=== PATIENT | male | born 1950 ===

== ENCOUNTER 2016-11-17 10:16 | Observation (INO) | payer MEDICARE, OTHER ==
[~2016-11-17] VITALS: Ht 167.6 cm; Wt 59.4 kg
[2016-11-17] VITALS (10 sets, daily range): BP systolic 93–144; BP diastolic 42–74
--- NOTE | 2016-11-17 07:31 | Pre-Procedure Note/Attestation ---
Pre-Procedure Note/Attestation Complete Prior to Procedure Procedure Narrative: implantation of penile prosthesis inflatable Indications for Procedure Pre-Operative Diagnosis: impotence Attestation I attest that I discussed the nature of the procedure; its benefits; risks and complications; and alternatives (and the risks and benefits of such alternatives ), prior to the procedure, with the patient (or the patient's legal utility sales representative). I attest that, if there was a reasonable possibility of needing a blood transfusion, the patient (or the patient's legal utility sales representative) was given the [facility] standardized written summary, pursuant to the Marcial Theodore Blood Safety Act ([place] Health and Safety Code # 1645, as amended). I attest that I re-evaluated the patient just prior to the surgery and that there has been no change in the patient's H&P, except as documented below: Hugo Cisneros MD Nov 17, 2016 07:31
[2016-11-17] MEDS ORDERED: PLAVIX75 MG ORAL (10:55)
[2016-11-17] MEDS ORDERED: ATORVASTATIN CA80 MG ORAL (10:55)
[2016-11-17] MEDS ORDERED: COREG25 MG ORAL (10:55)
[2016-11-17] MEDS ORDERED: TRAMADOL HCL50 MG ORAL (10:55)
[2016-11-17] MEDS ORDERED: CREON DR 24,001 EACH PO (10:55)
[2016-11-17] MEDS ORDERED: ASPIRIN81 MG ORAL (10:55)
[2016-11-17] MEDS ORDERED: AMLODIPINE BESY10 MG ORAL (10:55)
[2016-11-17] MEDS ORDERED: KLONOPIN0.5 MG ORAL (10:55)
[2016-11-17] MEDS ORDERED: Bacitracin Oint 15gm Tube TOPIC ONE (12:30)
[2016-11-17] MEDS ORDERED: Surgicel 4in x 8in TOPIC ONE (12:30)
[2016-11-17] MEDS ORDERED: Bacitracin 50000 Units Vial ONE (12:31)
[2016-11-17] MEDS ORDERED: Albuterol 90mcg Inhaler 8gm INH ONE (13:18)
[2016-11-17] MEDS ORDERED: LR 1000ml ONE (13:30)
[2016-11-17] MEDS ORDERED: fentaNYL 100 mcg/2 mL IV ONE (13:30)
[2016-11-17] MEDS ORDERED: NS Irrig 1000ml ONE (13:30)
[2016-11-17] MEDS ORDERED: Midazolam 2mg/2ml Inj ONE (13:30)
[2016-11-17] MEDS ORDERED: Sterile Water Irrig 1000ml IRRIG ONE (13:30)
[2016-11-17] MEDS ORDERED: Propofol 10mg/ml 20ml IV ONE (13:44)
[2016-11-17] MEDS ORDERED: Vancomycin 1gm inj IVPB ONE (14:17)
--- NOTE | 2016-11-17 15:13 | Anethesia Preoperative Eval ---
Anesthesia Pre-op PMH/ROS General Date of Evaluation: Nov 17, 2016 Time of Evaluation: 13:25 Anesthesiologist: Henri ASA Score: ASA 3 Mallampati Score Class I : Soft palate, uvula, fauces, pillars visible Class II: Soft palate, uvula, fauces visible Class III: Soft palate, base of uvula visible Class IV: Only hard plate visible Mallampati Classification: Class II Surgeon: Amelia Diagnosis: ED Surgical Procedure: Penile prosteses placement Anesthesia History: none Social History: current smoker Family History: no anesthesia problems Allergies: Coded Allergies: PENICILLINS (Verified Allergy, Unknown, 11/16/16) Medications: see eMAR Past Medical History Cardiovascular: Reports: CAD - s/p coronary stentts placement no recent CP, HTN Pulmonary: Reports: COPD - severe Gastrointestinal/Genitourinary: Reports: GERD, Denies: CRI, ESRD, other Neurologic/Psychiatric: Reports: depression/anxiety, Denies: CVA, TIA, dementia, other Endocrine: Reports: DM - on pills, Denies: hypothyroidism, other, steroids HEENT: Reports: cataract (L), cataract (R) - s/p Sx Hematology/Immune: Reports: anemia - mild, Denies: DVT, bleeding disorder, other Musculoskeletal/Integumentary: Reports: DJD, Denies: DDD, OA, RA, edema, other PMH Narrative: as above PSxH Narrative: Bilateral cataracts, Ex lap with hernia repair and partial bowel resection Anesthesia Pre-op Phys. Exam Physician Exam Last Vital Signs Date Time Temp Pulse Resp B/P Pulse Ox O2 Delivery O2 Flow Rate FiO2 11/17/16 10:45 98.9 78 18 131/64 97 Room Air Constitutional: NAD Neurologic: CN 2-12 intact Cardiovascular: RRR Respiratory: other - Diffuse bilateral wheezing , diminished breath sounds Gastrointestinal: S/NT/ND Airway Exam Mallampati Score: Class II MO: full Neck: stiff ROM: limited Teeth: missing Dentures: no lower, no upper Anesthesia Pre-op A/P Labs see chart Studies Pre-op Studies: EKG - NSR Risk Assessment & Plan Assessment: ASA 3 Plan: SAB with MAC Status Change Before Surgery: No Pre-Antibiotics Drug: Ancef 2gr. Given Within 1 Hr of Incision: Yes Time Given: 13:48 MAR BELLE M.D. Nov 17, 2016 15:13
[2016-11-17] MEDS ORDERED: LR 1000ml 1,000 ML IVLG SCH (15:16)
--- NOTE | 2016-11-17 15:16 | Immediate Post-Op Evaluation ---
Immediate Post-Op Evalulation Immediate Post-Op Evalulation Procedure: Penile prostesis placement Date of Evaluation: Nov 17, 2016 Time of Evaluation: 15:15 IV Fluids: 1200 Blood Products: none Estimated Blood Loss: min Urinary Output: 150 Blood Pressure Systolic: 98 Blood Pressure Diastolic: 56 Pulse Rate: 78 Respiratory Rate: 20 O2 Sat by Pulse Oximetry: 98 Temperature (Fahrenheit): 98.4 Pain Score (1-10): 1 Nausea: No Vomiting: No Complications none Patient Status: awake, patent, none Hydration Status: adequate MAR BELLE M.D. Nov 17, 2016 15:16
[2016-11-17] MEDS ORDERED: Midazolam 2mg/2ml Inj IVP PRN (15:30)
[2016-11-17] MEDS ORDERED: Hydromorphone 0.5mg/0.5ml inj IVP PRN (15:30)
[2016-11-17] MEDS ORDERED: DiphenhydrAMINE 50mg/ml Inj IVP PRN (15:30)
[2016-11-17] MEDS: Ketorolac 30mg Inj IV PRN (19:00)
[2016-11-17] MEDS: D5 1/2NS w/KCl 20mEq 1,000 ML IV SCH (20:55)
[2016-11-17] MEDS: Vancomycin 1 GM in D5W 275 ML IVPB SCH (20:57)
[2016-11-18] MEDS: HYDROmorphone 1mg/ml Carpuject SUBQ PRN ×3 (00:23→11:11)
[2016-11-18 04:00] VITALS: BP 145/89
[2016-11-18] MEDS: D5 1/2NS w/KCl 20mEq 1,000 ML IV SCH (05:35)
[2016-11-18] MEDS: Ketorolac 30mg Inj IV PRN (05:36)
[2016-11-18] MEDS: Vancomycin 1 GM in D5W 275 ML IVPB SCH (07:56)
[2016-11-18 08:11] VITALS: BP 166/84
--- NOTE | 2016-11-18 08:11 | 48 Hour Post Anesthesia Eval ---
Post Anesthesia Evaluation Procedure: Penile prostesis placement Date of Evaluation: Nov 18, 2016 Time of Evaluation: 07:05 Blood Pressure Systolic: 145 0: 89 Pulse Rate: 99 Respiratory Rate: 18 Temperature (Fahrenheit): 97.3 O2 Sat by Pulse Oximetry: 92 Airway: patent Nausea: No Vomiting: No Pain Intensity: 1 Hydration Status: adequate Cardiopulmonary Status: at baseline Mental Status/LOC: patient returned to baseline Post-Anesthesia Complications: 0 Follow-up care needed: N/A - further care as per primary team COCO GUZMAN M.D. Nov 18, 2016 08:11
[2016-11-18] MEDS ORDERED: Gentamicin inj 300 MG in NS 110 ML IVPB ONE (09:00)
[2016-11-18] MEDS ORDERED: Vancomycin 1250mg in D5W 275ml IVPB ONE (10:00)
--- NOTE | 2016-11-19 16:08 | Brief Operative Note ---
Immediate Post Operative Note Operative Note Pre-op Diagnosis: impotence Procedure: IPP Post-op Diagnosis: same Post-op Diagnosis: same as pre-op Surgeon: Pro Cisneros Anesthesia: general Specimen: none Complications: none Condition: stable Estimated Blood Loss: minimal Implant(s) used?: Yes Hugo Cisneros MD Nov 19, 2016 16:08
--- NOTE | 2016-11-19 23:58 | Operative Note - Dictated ---
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 OPERATIONS: Implantation of Ambicor penile prosthesis. SURGEON: Hugo Cisneros M.D. ANESTHESIA: General. FINDINGS: Obstructive cord. INDICATIONS FOR SURGERY: The patient had impotence unresponsive to any medical therapy. Treatment options were explained to him in great length including all the potential complications. He signed the consent and brought to the operative room, placed in the supine position. Prepped and draped in a standard fashion. Under general anesthesia, both corpora was mobilized and protected with a Foss catheter. Corpora was opened and dilated to 14-Congolese with Hegar dilators. A 22 cm and 12.5 Ambicor prosthesis with 2.5 cm diopters were placed in the extended position. Corpora was closed. Pump was placed in the subdeltoid fascia and wound was closed in three layers subcuticular closure for the skin. The patient received vancomycin. Preoperatively, dressing was clean and dry. Sponge count and instrument count were correct. Hugo Cisneros M.D. DR: IRMA JOB#: [id number] CC:
== END 2016-11-18 11:45 | disposition home or self-care (01) ==
LOC: SUR 10:16 → 3E 16:15
DX: N52.9 Male erectile dysfunction, unspecified (principal); E11.9 Type 2 diabetes mellitus without complications; I10 Essential (primary) hypertension; I25.10 Atherosclerotic heart disease of native coronary artery without angina pectoris; I50.9 Heart failure, unspecified; E78.5 Hyperlipidemia, unspecified; D64.9 Anemia, unspecified; J44.9 Chronic obstructive pulmonary disease, unspecified; K21.9 Gastro-esophageal reflux disease without esophagitis; F32.9 Major depressive disorder, single episode, unspecified; F41.9 Anxiety disorder, unspecified; M19.90 Unspecified osteoarthritis, unspecified site
CPT/HCPCS: 54405; G0378 ×2; G0379; J0690; J1170; J1580; J1885 ×2; J2250; J2704; J3010; J3370; J7120; 94003; 94150

== ENCOUNTER 2017-01-19 09:16 | Inpatient (IN) | payer MEDICARE, OTHER ==
[2017-01-19] VITALS (17 sets, daily range): BP systolic 147–175; BP diastolic 60–86
[~2017-01-19] VITALS: Ht 167.6 cm; Wt 62.6 kg
[~2017-01-19 09:16] MED LIST: AMLODIPINE BESY10 MG ORAL; ASPIRIN81 MG ORAL; ATORVASTATIN CA80 MG ORAL; COREG25 MG ORAL; CREON DR 24,001 EACH PO; KLONOPIN0.5 MG ORAL; PLAVIX75 MG ORAL; TRAMADOL HCL50 MG ORAL; Vancomycin 1 GM in D5W 275 ML IVPB ONE
--- NOTE | 2017-01-19 09:59 | Pre-Procedure Note/Attestation ---
Pre-Procedure Note/Attestation Complete Prior to Procedure Planned Procedure: not applicable Procedure Narrative: Removal of IPP Indications for Procedure Pre-Operative Diagnosis: ED infected IPP Attestation I attest that I discussed the nature of the procedure; its benefits; risks and complications; and alternatives (and the risks and benefits of such alternatives ), prior to the procedure, with the patient (or the patient's legal sales representatives). I attest that, if there was a reasonable possibility of needing a blood transfusion, the patient (or the patient's legal sales representatives) was given the [facility] standardized written summary, pursuant to the Marcial Theodore Blood Safety Act ([place] Health and Safety Code # 1645, as amended). I attest that I re-evaluated the patient just prior to the surgery and that there has been no change in the patient's H&P, except as documented below: Hugo Cisneros MD Jan 19, 2017 09:59
[2017-01-19] MEDS ORDERED: Vancomycin 1gm inj IVPB ONE ×2 (13:09→13:34)
[2017-01-19] MEDS ORDERED: Propofol 10mg/ml 20ml IV ONE (13:09)
[2017-01-19] MEDS ORDERED: Bacitracin 50000 Units Vial ONE (13:10)
[2017-01-19] MEDS ORDERED: NS Irrig 1000ml ONE (13:30)
[2017-01-19] MEDS ORDERED: Esmolol 100mg/10ml Inj ONE (13:30)
[2017-01-19] MEDS ORDERED: Sterile Water Irrig 1000ml IRRIG ONE (13:30)
[2017-01-19] MEDS ORDERED: LR 1000ml ONE (13:30)
[2017-01-19] MEDS ORDERED: Lidocaine 1% MPF 10mg/ml 5ml ONE (13:30)
[2017-01-19] MEDS ORDERED: fentaNYL 100 mcg/2 mL IV ONE (13:30)
[2017-01-19] MEDS ORDERED: Hydrogen Peroxide 473ml Bottle TOPIC ONE (13:34)
--- NOTE | 2017-01-19 13:53 | Brief Operative Note ---
Immediate Post Operative Note Operative Note Pre-op Diagnosis: ED infected IPP Procedure: Removal of IPP Post-op Diagnosis: same Surgeon: Pro Cisneros Anesthesia: general Specimen: none Complications: none Estimated Blood Loss: none Implant(s) used?: No Hugo Cisneros MD Jan 19, 2017 13:53
[2017-01-19] MEDS ORDERED: Ketorolac 30mg Inj IV PRN ×2 (14:00→22:00)
[2017-01-19] MEDS ORDERED: Betadine 4oz Bottle TOPIC ONE (14:27)
[2017-01-19] MEDS ORDERED: Metoclopramide 10mg/2ml Inj IVP PRN (14:30)
[2017-01-19] MEDS ORDERED: Meperidine 25mg/0.5ml Inj IV PRN (14:30)
[2017-01-19] MEDS ORDERED: Hydromorphone 0.5mg/0.5ml inj IVP PRN (14:30)
--- NOTE | 2017-01-19 15:15 | Immediate Post-Op Evaluation ---
Immediate Post-Op Evalulation Immediate Post-Op Evalulation Procedure: removal of penile prosthesis Date of Evaluation: Jan 19, 2017 Time of Evaluation: 15:15 IV Fluids: 800 Blood Pressure Systolic: 151 Blood Pressure Diastolic: 60 Pulse Rate: 91 Respiratory Rate: 14 O2 Sat by Pulse Oximetry: 100 Temperature (Fahrenheit): 97.7 Nausea: No Vomiting: No Complications none Patient Status: awake, reacts, patent Hydration Status: adequate Drug: gentamicin Given Within 1 Hr of Incision: Yes DONALD ACOSTA CRNA Jan 19, 2017 15:15
--- NOTE | 2017-01-19 15:19 | Anethesia Preoperative Eval ---
Anesthesia Pre-op PMH/ROS General Date of Evaluation: Jan 19, 2017 Time of Evaluation: 14:00 Anesthesiologist: justyna ASA Score: ASA 3 Mallampati Score Class I : Soft palate, uvula, fauces, pillars visible Class II: Soft palate, uvula, fauces visible Class III: Soft palate, base of uvula visible Class IV: Only hard plate visible Mallampati Classification: Class III Surgeon: jonn Diagnosis: abcess protheis Surgical Procedure: removal penile prosthesis Anesthesia History: none Social History: current smoker Family History: no anesthesia problems Allergies: Coded Allergies: No Known Allergies (Unverified , 01/18/17) Medications: see eMAR Past Medical History Cardiovascular: Reports: HTN Pulmonary: Denies: COPD, FRED, asthma, other Gastrointestinal/Genitourinary: Reports: GERD Endocrine: Denies: DM, other, steroids HEENT: Reports: cataract (R) Hematology/Immune: Denies: DVT, anemia, bleeding disorder, other Musculoskeletal/Integumentary: Denies: DDD, DJD, OA, RA, edema, other PSxH Narrative: penile implant 11/08 Anesthesia Pre-op Phys. Exam Physician Exam Last Vital Signs Date Time Temp Pulse Resp B/P Pulse Ox O2 Delivery O2 Flow Rate FiO2 01/19/17 15:15 91 14 100 01/19/17 10:20 98.0 156/85 Room Air Constitutional: NAD Neurologic: CN 2-12 intact Cardiovascular: RRR Respiratory: CTA Gastrointestinal: S/NT/ND Airway Exam Mallampati Classification 3 Mallampati Score: Class III MO: limited ROM: limited Teeth: missing Anesthesia Pre-op A/P Labs wnl Studies Pre-op Studies: EKG - sr Risk Assessment & Plan Plan: general Status Change Before Surgery: No Pre-Antibiotics Drug: gent Given Within 1 Hr of Incision: Yes Time Given: 13:45 DONALD ACOSTA CRNA Jan 19, 2017 15:19
--- NOTE | 2017-01-19 15:21 | 48 Hour Post Anesthesia Eval ---
Post Anesthesia Evaluation Procedure: removal of penile prosthesis Date of Evaluation: Jan 19, 2017 Time of Evaluation: 15:20 Blood Pressure Systolic: 158 0: 70 Pulse Rate: 100 Respiratory Rate: 14 O2 Sat by Pulse Oximetry: 95 Airway: patent Nausea: No Vomiting: No Hydration Status: adequate Cardiopulmonary Status: stable Mental Status/LOC: patient returned to baseline Post-Anesthesia Complications: none Follow-up care needed: N/A DONALD ACOSTA CRNA Jan 19, 2017 15:21
--- NOTE | 2017-01-19 16:26 | History and Physical ---
History of Present Illness General Date patient seen: Jan 19, 2017 Present Illness HPI 66 year old male with hx of ED, HTN, CVA, admitted for removal of infected IPP Allergies: Coded Allergies: No Known Allergies (Unverified , 01/18/17) Medication History Scheduled Amlodipine Besylate* (Amlodipine Besylate*), 10 MG ORAL DAILY, (Reported) Atorvastatin Calcium* (Lipitor*), 80 MG ORAL BEDTIME, (Reported) Carvedilol (Coreg), 25 MG ORAL EVERY 12 HOURS, (Reported) Clonazepam* (Klonopin*), 0.5 MG ORAL PRN, (Reported) Lipase/Protease/Amylase (Creon Dr 24,000 Units Capsule), 1 EACH PO DAILY, ( Reported) Scheduled PRN Tramadol Hcl* (Ultram*), 50 MG ORAL PRN PRN for For Pain, (Reported) Patient History Healthcare decision maker Resuscitation status Advanced Directive on File Past Medical/Surgical History Past Medical/Surgical History: (1) Erectile dysfunction (2) HTN (hypertension) (3) CVA (cerebral vascular accident) Review of Systems All Other Systems: negative except mentioned in HPI Physical Exam General Appearance: WD/WN Lines, tubes and drains: peripheral HEENT: normocephalic, atraumatic Neck: non-tender, normal alignment Respiratory/Chest: chest wall non-tender, lungs clear Cardiovascular/Chest: normal peripheral pulses, normal rate Abdomen: non tender Last 24 Hour Vital Signs Date Time Temp Pulse Resp B/P Pulse Ox O2 Delivery O2 Flow Rate FiO2 01/19/17 15:45 75 15 153/78 96 Simple Mask 6.0 01/19/17 15:30 81 18 170/86 97 Simple Mask 6.0 01/19/17 15:21 100 14 95 01/19/17 15:15 72 15 175/79 99 Simple Mask 6.0 01/19/17 15:15 91 14 100 01/19/17 15:00 81 17 151/60 96 Simple Mask 6.0 01/19/17 14:50 97.7 94 14 159/86 98 Simple Mask 6.0 01/19/17 10:20 98.0 100 18 156/85 98 Room Air Height (Feet): 5 Height (Inches): 6.00 Weight (Pounds): 138 Medications Current Medications Medications (Trade) Dose Ordered Sig/Twin Route PRN Reason Start Time Stop Time Status Last Admin Dose Admin Acetaminophen (Tylenol) 650 mg Q4H PRN ORAL FEVER 01/19/17 14:00 02/18/17 13:59 UNV Acetaminophen (Tylenol) 650 mg Q6H PRN ORAL Mild Pain (Pain Scale 1-3) 01/19/17 14:00 02/18/17 13:59 UNV Acetaminophen/ Hydrocodone Bitart ([place] 5/325) 1 tab Q4H PRN ORAL Moderate Pain (Pain Scale 4-6) 01/19/17 14:00 01/26/17 13:59 UNV Amlodipine Besylate (Norvasc) 10 mg DAILY ORAL 01/20/17 09:00 02/19/17 08:59 UNV Atorvastatin Calcium (Lipitor) 80 mg BEDTIME ORAL 01/19/17 21:00 02/18/17 20:59 UNV Carvedilol (Coreg) 25 mg EVERY 12 HOURS ORAL 01/19/17 21:00 02/18/17 20:59 UNV Clonazepam (KlonoPIN) 0.5 mg PRN ORAL 01/19/17 16:30 01/26/17 16:29 UNV Dextrose/ Electrolytes (D5 0.45%NS W/ KCl 20mEq) 1,000 ml @ 100 mls/hr Q10H IV 01/19/17 13:53 02/18/17 13:52 UNV Docusate Sodium (Colace) 100 mg TWICE A DAY ORAL 01/19/17 18:00 02/18/17 17:59 UNV Hydromorphone HCl (Dilaudid) 0.5 mg Q15M PRN IVP Severe Pain (Pain Scale 7-10) 01/19/17 14:30 UNV Hydromorphone HCl (Dilaudid) 1 mg Q3H PRN IVP pain score 4-6 01/19/17 14:00 01/26/17 13:59 UNV Ketorolac Tromethamine (Toradol 30mg) 15 mg Q6H PRN IV For Pain 01/19/17 14:00 01/24/17 13:59 UNV Meperidine HCl (Demerol) 25 mg Q15M PRN IV Shivering 01/19/17 14:30 UNV Metoclopramide HCl (Reglan) 10 mg Q1H PRN IVP Nausea & Vomiting 01/19/17 14:30 UNV Ondansetron HCl (Zofran) 4 mg Q1H PRN IVP Nausea & Vomiting 01/19/17 14:30 UNV Ondansetron HCl (Zofran) 4 mg Q6H PRN IVP Nausea & Vomiting 01/19/17 14:00 02/18/17 13:59 UNV Temazepam (Restoril) 7.5 mg DAILYPRN PRN ORAL Insomnia 01/19/17 14:00 01/26/17 13:59 UNV Assessment/Plan Problem List: (1) Implanon removal ICD Codes: Z30.46 - Encounter for surveillance of implantable subdermal contraceptive SNOMED: 795596149, 914127007 (2) HTN (hypertension) ICD Codes: I10 - Essential (primary) hypertension SNOMED: 99792963 (3) Erectile dysfunction ICD Codes: N52.9 - Male erectile dysfunction, unspecified SNOMED: 486824091 (4) CVA (cerebral vascular accident) ICD Codes: I63.9 - Cerebral infarction, unspecified SNOMED: 837709361 JASPREET LEPE Jan 19, 2017 16:26
[2017-01-19] MEDS ORDERED: clonazePAM 0.5mg tab ORAL SCH (16:30)
[2017-01-19] MEDS ORDERED: Norco 5mg/325mg tab ORAL PRN ×2 (20:12→20:33)
[2017-01-19] MEDS ORDERED: HYDROmorphone 1mg/ml Carpuject IVP PRN ×2 (20:13→20:33)
[2017-01-19 20:33] LABS: BASOPHILS % (AUTO) 0.6 % (0.0-2.0); EOSINOPHILS % (AUTO) 1.9 % (0.0-3.0); LYMPHOCYTES % (AUTO) 15.4 % (20.0-45.0); MEAN CORPUSCULAR HGB CONC 32.9 G/DL (32.0-36.0); MEAN CORPUSCULAR VOLUME 94 FL (80-99); MEAN PLATELET VOLUME 6.9 FL (6.5-10.1); MONOCYTES % (AUTO) 6.4 % (1.0-10.0); NEUTROPHILS % (AUTO) 75.7 % (45.0-75.0); PLATELET COUNT 249 K/UL (150-450); RED BLOOD COUNT 4.17 M/UL (4.70-6.10); RED CELL DISTRIBUTION WIDTH 12.1 % (11.6-14.8); WHITE BLOOD COUNT 11.9 K/UL (4.8-10.8)
[2017-01-19] MEDS: D5 1/2NS w/KCl 20mEq 1,000 ML IV SCH (20:43)
[2017-01-19] MEDS: Carvedilol 25mg Tab ORAL SCH (20:44)
[2017-01-19] MEDS: Docusate 100mg cap ORAL SCH (20:44)
[2017-01-19 20:49] LABS: ANION GAP 13 (5-15); CALCIUM 9.2 mg/dL (8.6-10.2); CARBON DIOXIDE 28 mEQ/L (20-30); CHLORIDE 98 mEQ/L (98-107); CREATININE 0.8 mg/dL (0.7-1.2); GLOMERULAR FILTRATION RATE > 60 mL/min (>60); HEMOLYSIS 1; POTASSIUM 4.6 mEQ/L (3.4-4.9); SODIUM 139 mEQ/L (135-145)
[2017-01-19] MEDS ORDERED: Atorvastatin 80mg tab ORAL SCH (21:00)
[2017-01-19] MEDS ORDERED: Vancomycin 1gm in D5W 275ml IVPB ONE (21:00)
[2017-01-19] MEDS: Piperacillin/Tazobactam 3.375 GM in NS 110 ML IVPB SCH (22:43)
[2017-01-19] MEDS ORDERED: Gentamicin inj 300 MG in NS 110 ML IVPB SCH (23:00)
[2017-01-20] VITALS (11 sets, daily range): BP systolic 162–206; BP diastolic 77–115
[2017-01-20] MEDS: D5 1/2NS w/KCl 20mEq 1,000 ML IV SCH ×3 (05:22→21:22)
[2017-01-20] MEDS: Piperacillin/Tazobactam 3.375 GM in NS 110 ML IVPB SCH ×2 (05:33→17:30)
[2017-01-20] MEDS ORDERED: HydrALAZINE 10mg Tab ORAL PRN ×2 (08:00→13:00)
[2017-01-20] MEDS: Docusate 100mg cap ORAL SCH ×2 (08:22→18:27)
[2017-01-20] MEDS: Carvedilol 25mg Tab ORAL SCH ×2 (08:23→21:21)
[2017-01-20 08:33] LABS: MEAN CORPUSCULAR HEMOGLOBIN 31.2 PG (27.0-31.0); MEAN CORPUSCULAR HGB CONC 33.1 G/DL (32.0-36.0); MEAN CORPUSCULAR VOLUME 94 FL (80-99); MEAN PLATELET VOLUME 6.6 FL (6.5-10.1); PLATELET COUNT 302 K/UL (150-450); RED BLOOD COUNT 4.83 M/UL (4.70-6.10); RED CELL DISTRIBUTION WIDTH 12.2 % (11.6-14.8)
[2017-01-20 08:44] LABS: INR 1.1 (0.9-1.1); PROTHROMBIN TIME 11.9 SEC (9.30-11.50)
[2017-01-20 08:54] LABS: BAND NEUTROPHILS % (MANUAL) 0 % (0-8); BASOPHILS % (MANUAL) 0 % (0-2); EOSINOPHILS % (MANUAL) 0 % (0-3); LYMPHOCYTES % (MANUAL) 7 % (20-45); NEUTROPHILS % (MANUAL) 89 % (45-75); PLATELET ESTIMATE ADEQUATE; PLATELET MORPHOLOGY NORMAL; TOTAL CELLS COUNTED 100
[2017-01-20 09:15] LABS: MAGNESIUM 1.6 mg/dL (1.7-2.5); PHOSPHORUS 2.3 mg/dL (2.5-4.8)
[2017-01-20 09:20] LABS: ALANINE AMINOTRANSFERASE 23 U/L (3-41); ANION GAP 20 (5-15); ASPARTATE AMINO TRANSFERASE 32 U/L (5-40); CALCIUM 8.9 mg/dL (8.6-10.2); CARBON DIOXIDE 23 mEQ/L (20-30); CHLORIDE 96 mEQ/L (98-107); CREATININE 0.7 mg/dL (0.7-1.2); GLOMERULAR FILTRATION RATE > 60 mL/min (>60); HEMOLYSIS 2; POTASSIUM 3.9 mEQ/L (3.4-4.9); SODIUM 139 mEQ/L (135-145); TOTAL PROTEIN 6.7 g/dL (6.6-8.7)
[2017-01-20] MEDS ORDERED: Norco 5mg/325mg tab ORAL PRN (11:30)
[2017-01-20] MEDS ORDERED: Ketorolac 30mg Inj IV PRN (11:30)
--- NOTE | 2017-01-20 14:56 | Pulmonology Progress Note ---
Assessment/Plan Problems: (1) Implanon removal (2) HTN (hypertension) (3) Erectile dysfunction (4) CVA (cerebral vascular accident) Assessment/Plan bp control IV antibiotics check wbc Mg, Sulfa supplement. Subjective ROS Limited/Unobtainable: No Interval Events: transferred to [facility] b/o bp of 206/100 Respiratory: Reports: no symptoms Cardiovascular: Reports: no symptoms Allergies: Coded Allergies: No Known Allergies (Unverified , 01/18/17) Objective Last 24 Hour Vital Signs Date Time Temp Pulse Resp B/P Pulse Ox O2 Delivery O2 Flow Rate FiO2 01/20/17 13:07 81 162/96 01/20/17 11:46 190/80 01/20/17 11:30 96.7 83 20 190/80 98 Nasal Cannula 1.0 01/20/17 09:55 97.0 77 20 178/86 97 Nasal Cannula 2.0 01/20/17 09:27 77 190/77 01/20/17 08:26 206/115 01/20/17 08:23 98 206/115 01/20/17 08:23 98 206/115 01/20/17 08:15 97.2 74 20 206/93 96 Nasal Cannula 2.0 01/20/17 08:00 97.0 95 20 206/115 97 Nasal Cannula 2.0 01/20/17 05:30 80 167/94 01/20/17 04:42 175/79 01/20/17 04:00 98.1 80 16 175/79 97 Nasal Cannula 2.0 01/20/17 00:39 185/93 01/20/17 00:30 97.3 93 16 185/93 97 Nasal Cannula 2.0 01/19/17 21:00 97 Nasal Cannula 2.0 28 01/19/17 21:00 Nasal Cannula 2.0 28 01/19/17 20:44 125 175/85 01/19/17 20:00 98.6 125 16 175/85 99 Nasal Cannula 2.0 01/19/17 18:30 80 18 164/79 98 Nasal Cannula 01/19/17 18:00 79 18 164/71 99 Nasal Cannula 3.0 01/19/17 17:45 81 18 160/74 97 Nasal Cannula 3.0 01/19/17 17:30 98.3 79 16 159/83 96 Nasal Cannula 3.0 01/19/17 17:15 75 15 147/76 97 Nasal Cannula 3.0 01/19/17 17:00 72 19 157/83 93 Nasal Cannula 3.0 01/19/17 16:45 87 18 153/78 97 Nasal Cannula 3.0 01/19/17 16:30 83 16 163/74 95 Nasal Cannula 3.0 01/19/17 16:15 71 17 149/81 96 Nasal Cannula 3.0 01/19/17 16:00 77 14 155/75 98 Nasal Cannula 3.0 01/19/17 15:45 75 15 153/78 96 Simple Mask 6.0 01/19/17 15:30 81 18 170/86 97 Simple Mask 6.0 01/19/17 15:21 100 14 95 01/19/17 15:15 72 15 175/79 99 Simple Mask 6.0 01/19/17 15:15 91 14 100 01/19/17 15:00 81 17 151/60 96 Simple Mask 6.0 Intake and Output 01/19/17 01/20/17 19:00 07:00 Intake Total 250 ml 100 ml Output Total 640 ml 1600 ml Balance -390 ml -1500 ml Intake Oral 0 ml 0 ml IV Total 250 ml 100 ml Output Urine Total 630 ml 1600 ml Estimated Blood Loss 10 ml # Voids 2 General Appearance: WD/WN HEENT: normocephalic, atraumatic, anicteric Respiratory/Chest: chest wall non-tender, lungs clear Cardiovascular: normal peripheral pulses, normal rate Abdomen: normal bowel sounds, soft, non tender Genitourinary: normal external genitalia Extremities: no cyanosis Skin: no lesions, no ulcers 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 Laboratory Tests 01/19/17 18:00: White Blood Count 11.9H, Red Blood Count 4.17L, Hemoglobin 12.9L, Hematocrit 39.3L, Mean Corpuscular Volume 94, Mean Corpuscular Hemoglobin 31.0, Mean Corpuscular Hemoglobin Concent 32.9, Red Cell Distribution Width 12.1, Platelet Count 249, Mean Platelet Volume 6.9, Neutrophils (%) (Auto) 75.7H, Lymphocytes ( %) (Auto) 15.4L, Monocytes (%) (Auto) 6.4, Eosinophils (%) (Auto) 1.9, Basophils (%) (Auto) 0.6, Sodium Level 139, Potassium Level 4.6, Chloride Level 98, Carbon Dioxide Level 28, Anion Gap 13, Blood Urea Nitrogen 17, Creatinine 0.8, Estimat Glomerular Filtration Rate > 60, Glucose Level 80, Calcium Level 9.2 01/20/17 08:10: White Blood Count 16.0H, Red Blood Count 4.83, Hemoglobin 15.1, Hematocrit 45.5 , Mean Corpuscular Volume 94, Mean Corpuscular Hemoglobin 31.2H, Mean Corpuscular Hemoglobin Concent 33.1, Red Cell Distribution Width 12.2, Platelet Count 302, Mean Platelet Volume 6.6, Neutrophils (%) (Auto) , Lymphocytes (%) ( Auto) , Monocytes (%) (Auto) , Eosinophils (%) (Auto) , Basophils (%) (Auto) , Sodium Level 139, Potassium Level 3.9, Chloride Level 96L, Carbon Dioxide Level 23, Anion Gap 20H, Blood Urea Nitrogen 13, Creatinine 0.7, Estimat Glomerular Filtration Rate > 60, Glucose Level 125H, Calcium Level 8.9, Differential Total Cells Counted 100, Neutrophils % (Manual) 89H, Lymphocytes % (Manual) 7L, Monocytes % (Manual) 4, Eosinophils % (Manual) 0, Basophils % (Manual) 0, Band Neutrophils 0, Platelet Estimate Adequate, Platelet Morphology Normal, Red Blood Cell Morphology Normal, Prothrombin Time 11.9H, Prothromb Time International Ratio 1.1, Activated Partial Thromboplast Time 29, Phosphorus Level 2.3L, Magnesium Level 1.6L, Total Bilirubin 0.3, Aspartate Amino Transf ( AST/SGOT) 32, Alanine Aminotransferase (ALT/SGPT) 23, Alkaline Phosphatase 77, Total Protein 6.7, Albumin 3.5, Globulin 3.2, Albumin/Globulin Ratio 1.0 Current Medications Medications (Trade) Dose Ordered Sig/Twin Route PRN Reason Start Time Stop Time Status Last Admin Dose Admin Acetaminophen (Tylenol) 650 mg Q4H PRN ORAL FEVER>100.6 01/20/17 11:00 02/19/17 10:59 Acetaminophen (Tylenol) 650 mg Q6H PRN ORAL Mild Pain (Pain Scale 1-3) 01/20/17 11:00 02/19/17 10:59 Acetaminophen/ Hydrocodone Bitart ([place] 5/325) 1 tab Q4H PRN ORAL Mild Pain (Pain Scale 1-3) 01/20/17 11:30 01/27/17 11:29 Amlodipine Besylate (Norvasc) 10 mg DAILY ORAL 01/21/17 09:00 02/20/17 08:59 Atorvastatin Calcium (Lipitor) 80 mg BEDTIME ORAL 01/20/17 21:00 02/19/17 20:59 Carvedilol (Coreg) 25 mg EVERY 12 HOURS ORAL 01/20/17 21:00 02/19/17 20:59 Clonazepam (KlonoPIN) 0.5 mg PRN ORAL 01/20/17 16:30 01/27/17 16:29 UNV Clonidine HCl (Catapres) 0.1 mg Q4H PRN ORAL SBP >160 mm Hg 01/20/17 12:26 02/19/17 12:25 Dextrose/ Electrolytes 1,000 ml @ 100 mls/hr Q10H IV 01/20/17 11:00 02/19/17 10:59 01/20/17 10:49 Docusate Sodium (Colace) 100 mg TWICE A DAY ORAL 01/20/17 18:00 02/19/17 17:59 Gentamicin Sulfate (Gentamicin inj) 100 mg EVERY 8 HOURS IV 01/20/17 14:00 01/27/17 13:59 UNV Hydralazine HCl (Apresoline) 10 mg Q4H PRN IV For SBP >160 01/20/17 11:30 02/19/17 11:29 01/20/17 11:46 Hydromorphone HCl (Dilaudid) 1 mg Q3H PRN IVP Breakthrough Pain 01/20/17 11:30 01/27/17 11:29 Ketorolac Tromethamine (Toradol 30mg) 15 mg Q6H PRN IV Moderate Pain (Pain Scale 4-6) 01/20/17 11:30 01/25/17 11:29 01/20/17 12:59 Ondansetron HCl (Zofran) 4 mg Q6H PRN IVP Nausea & Vomiting 01/20/17 11:30 02/19/17 11:29 01/20/17 12:42 Piperacillin Sod/ Tazobactam Sod/ Sodium Chloride (Zosyn/Sodium Chloride) 110 ml @ 27.5 mls/hr Q8H IVPB 01/20/17 14:00 01/27/17 13:59 UNV Temazepam (Restoril) 7.5 mg QHS PRN ORAL Insomnia 01/20/17 21:00 01/27/17 20:59 Vancomycin HCl (Vanco rx to dose) 1 ea DAILY PRN MISC Per rx protocol 01/21/17 09:00 02/20/17 08:59 UNV JASPREET LEPE Jan 20, 2017 14:56
[2017-01-20] MEDS ORDERED: clonazePAM 0.5mg tab ORAL PRN (16:30)
[2017-01-20] MEDS ORDERED: Sodium Phosphate 30 MM in NS 275 ML IV ONE (18:00)
[2017-01-20] MEDS: HYDROmorphone 1mg/ml Carpuject IVP PRN (18:55)
--- NOTE | 2017-01-20 19:24 | Cardiology Progress Note ---
Assessment/Plan Assessment/Plan The patient is seen and examined, full consult will be dictated. Objective Last 24 Hour Vital Signs Date Time Temp Pulse Resp B/P Pulse Ox O2 Delivery O2 Flow Rate FiO2 01/20/17 16:41 97 Nasal Cannula 2.0 01/20/17 16:41 Nasal Cannula 2.0 01/20/17 15:19 96.5 87 20 195/98 100 Nasal Cannula 2.0 01/20/17 15:13 195/98 01/20/17 13:07 81 162/96 01/20/17 12:00 77 01/20/17 11:46 190/80 01/20/17 11:30 96.7 83 20 190/80 98 Nasal Cannula 1.0 01/20/17 09:55 97.0 77 20 178/86 97 Nasal Cannula 2.0 01/20/17 09:43 74 01/20/17 09:27 77 190/77 01/20/17 08:26 206/115 01/20/17 08:23 98 206/115 01/20/17 08:23 98 206/115 01/20/17 08:15 97.2 74 20 206/93 96 Nasal Cannula 2.0 01/20/17 08:00 97.0 95 20 206/115 97 Nasal Cannula 2.0 01/20/17 05:30 80 167/94 01/20/17 04:42 175/79 01/20/17 04:00 98.1 80 16 175/79 97 Nasal Cannula 2.0 01/20/17 00:39 185/93 01/20/17 00:30 97.3 93 16 185/93 97 Nasal Cannula 2.0 01/19/17 21:00 97 Nasal Cannula 2.0 01/19/17 21:00 Nasal Cannula 2.0 01/19/17 20:44 125 175/85 01/19/17 20:00 98.6 125 16 175/85 99 Nasal Cannula 2.0 Intake and Output 01/19/17 01/20/17 19:00 07:00 Intake Total 250 ml 100 ml Output Total 640 ml 1600 ml Balance -390 ml -1500 ml Intake Oral 0 ml 0 ml IV Total 250 ml 100 ml Output Urine Total 630 ml 1600 ml Estimated Blood Loss 10 ml # Voids 2 Laboratory Tests Test 01/20/17 08:10 White Blood Count 16.0 K/UL (4.8-10.8) H Red Blood Count 4.83 M/UL (4.70-6.10) Hemoglobin 15.1 G/DL (14.2-18.0) Hematocrit 45.5 % (42.0-52.0) Mean Corpuscular Volume 94 FL (80-99) Mean Corpuscular Hemoglobin 31.2 PG (27.0-31.0) H Mean Corpuscular Hemoglobin Concent 33.1 G/DL (32.0-36.0) Red Cell Distribution Width 12.2 % (11.6-14.8) Platelet Count 302 K/UL (150-450) Mean Platelet Volume 6.6 FL (6.5-10.1) Neutrophils (%) (Auto) % (45.0-75.0) Lymphocytes (%) (Auto) % (20.0-45.0) Monocytes (%) (Auto) % (1.0-10.0) Eosinophils (%) (Auto) % (0.0-3.0) Basophils (%) (Auto) % (0.0-2.0) Differential Total Cells Counted 100 Neutrophils % (Manual) 89 % (45-75) H Lymphocytes % (Manual) 7 % (20-45) L Monocytes % (Manual) 4 % (1-10) Eosinophils % (Manual) 0 % (0-3) Basophils % (Manual) 0 % (0-2) Band Neutrophils 0 % (0-8) Platelet Estimate Adequate Platelet Morphology Normal Red Blood Cell Morphology Normal Prothrombin Time 11.9 SEC (9.30-11.50) H Prothromb Time International Ratio 1.1 (0.9-1.1) Activated Partial Thromboplast Time 29 SEC (23-33) Sodium Level 139 mEQ/L (135-145) Potassium Level 3.9 mEQ/L (3.4-4.9) Chloride Level 96 mEQ/L (98-107) L Carbon Dioxide Level 23 mEQ/L (20-30) Anion Gap 20 (5-15) H Blood Urea Nitrogen 13 mg/dL (7-23) Creatinine 0.7 mg/dL (0.7-1.2) Estimat Glomerular Filtration Rate > 60 mL/min (>60) Glucose Level 125 mg/dL (74-106) H Calcium Level 8.9 mg/dL (8.6-10.2) Phosphorus Level 2.3 mg/dL (2.5-4.8) L Magnesium Level 1.6 mg/dL (1.7-2.5) L Total Bilirubin 0.3 mg/dL (0.0-1.2) Aspartate Amino Transf (AST/SGOT) 32 U/L (5-40) Alanine Aminotransferase (ALT/SGPT) 23 U/L (3-41) Alkaline Phosphatase 77 U/L (40-129) Total Protein 6.7 g/dL (6.6-8.7) Albumin 3.5 g/dL (3.5-5.2) Globulin 3.2 g/dL Albumin/Globulin Ratio 1.0 (1.0-2.7) JORGE TAYLOR Jan 20, 2017 19:23
[2017-01-20] MEDS: Atorvastatin 80mg tab ORAL SCH (21:22)
--- NOTE | 2017-01-20 21:32 | Consultation ---
Consult Note Assessment/Plan [id number] DMITRIY NOBLE M.D. Jan 20, 2017 21:31
--- NOTE | 2017-01-20 22:31 | Consultation ---
DATE OF CONSULTATION: 01/20/2017 CARDIOLOGY CONSULTATION: CONSULTING PHYSICIAN: Danie Adorno M.D. ATTENDING PHYSICIAN: Hugo Cisneros M.D. REQUESTING PHYSICIAN: Sania Valles M.D. REASON FOR CONSULTATION: Management of tachycardia. HISTORY OF PRESENT ILLNESS: The patient is a very unfortunate 66-year-old gentleman, who is directly admitted to this facility for removal of the infected penile prosthesis. The patient is suffering from cerebrovascular accident and is not capable of verbalizing due to expressive aphasia. The patient underwent removal of the infected penile prosthesis by Dr. Cisneros, who has been admitted postoperatively to telemetry for further evaluation and management. Cardiology consultation was made at the request of Dr. Valles for management of tachycardia. PAST MEDICAL HISTORY: Significant for: 1. History of hypertension. 2. History of cerebrovascular accident. 3. History of erectile dysfunction. 4. History of gastroesophageal reflux disease. ALLERGIES: No known drug allergies. MEDICATIONS: 1. Amlodipine 10 mg p.o. daily. 2. Atorvastatin 80 mg p.o. at bedtime. 3. Carvedilol 25 mg p.o. twice daily. 4. Klonopin 0.5 mg p.o. daily at bedtime p.r.n. insomnia. 5. Creon 24,000, one tablet p.o. daily. HABITS: There is no current history of tobacco, alcohol, or illicit drug use. REVIEW OF SYSTEMS: A 12-system review cannot be done as the patient is aphasic and not providing any history. PHYSICAL EXAMINATION: VITAL SIGNS: Currently blood pressure is 195/98, heart rate 105, respiration 20, and O2 saturation 100% on room air. GENERAL: The patient is a very unfortunate 66-year-old gentleman, who is in no apparent respiratory distress and not capable of expressing himself. HEENT: Atraumatic and normocephalic. Anicteric. Pupils are equal, round, and reactive to light and accommodation. There is facial plethora. Dry mucosal membranes. NECK: JVP is less than 5 cm. No carotid bruits. Carotid upstrokes are 2+ bilaterally. CVS: Normal S1 and S2. Regular rate and rhythm. No murmurs, gallops, or rubs. Tachycardic. LUNGS: Clear to auscultation bilaterally. ABDOMEN: Soft, nontender, and nondistended. No hepatosplenomegaly. Positive bowel sounds. EXTREMITIES: No evidence of edema, clubbing, or cyanosis. LABORATORY FINDINGS: INR is 1.1. Sodium is 139, potassium 4.6, chloride 98, bicarbonate 28, BUN 17, creatinine 0.8, glucose 80, calcium 9.2, and magnesium 1.6. Hematology showed WBC 11.9, hemoglobin 12.9, hematocrit 39.3, and platelet count 249,000. ASSESSMENT AND PLAN: 1. Sinus tachycardia. This could be due to hypovolemia. I will like to hydrated the patient and also pain management as the patient is in postoperative. In view of accelerated hypertension, I would like to use metoprolol. 2. Accelerated hypertension. I will like to obtain the blood pressure to a level of 130 to 150 mmHg. The patient is currently on combination of amlodipine and carvedilol. Continue hydration on this patient. The patient is currently on carvedilol 25 mg, may have to add calcium- channel blockers, if the heart rate remains to be elevated. A 12-lead electrocardiogram will be done. Currently on amlodipine and carvedilol. The patient is on clonidine for breakthrough hypertension. I would like to consider valsartan. I would like to thank, Dr. Cisneros and Dr. Valles for allowing me to participate in the care of this patient. Danie Adorno M.D. DR: Michael JOB#: [id number] CC:
--- NOTE | 2017-01-20 23:01 | Consultation ---
DATE OF CONSULTATION: 01/20/2017 CARDIOLOGY CONSULTATION REFERRING PHYSICIAN: Sania Valles M.D. REASON FOR CONSULTATION: Management of tachycardia. HISTORY OF PRESENT ILLNESS: The patient is a very unfortunate gentleman with a prior history of hypertension, cerebrovascular accident, and erectile dysfunction. DICTATION ABRUPTLY ENDED Danie Adorno M.D. DR: [place] JOB#: [id number] CC:
[2017-01-21] VITALS: BP 171/100
--- NOTE | 2017-01-21 00:31 | Consultation ---
DATE OF CONSULTATION: INFECTIOUS DISEASES CONSULTATION CONSULTING PHYSICIAN: Sascha Tabor M.D. REQUESTING PHYSICIAN: Sania Valles M.D. REASON FOR CONSULTATION: Evaluation of the patient for penile prosthesis infection, antibiotic management. HISTORY OF PRESENT ILLNESS: The patient is a 66-year-old male with multiple medical problem as listed below, was admitted to this medical center for removal of infected penile prosthesis. The patient underwent surgery. The patient at this time is on IV antibiotics. Infectious Disease consultation has been requested for further evaluation of the patient and antibiotic management. The patient is not able to provide detailed information. Information is gathered through the chart and speaking to the staff. PAST MEDICAL HISTORY: 1. Hypertension. 2. CVA. 3. History of erectile dysfunction. 4. History of GERD. MEDICATIONS: IV Zosyn and vancomycin. ALLERGIES: No known drug allergies. SOCIAL HISTORY: Unknown. FAMILY HISTORY: Unavailable. REVIEW OF SYSTEMS: Limited. Much of the information I was able to gather is as mentioned above. PHYSICAL EXAMINATION: VITAL SIGNS: Pulse is 86, respiratory rate 18, and blood pressure 185/86. HEENT: Mild pale conjunctiva. No icterus. NECK: No lymphadenopathy. CHEST: Clear. HEART: S1 and S2. ABDOMEN: Soft. Nontender. EXTREMITIES: No cyanosis. : The patient has dressing in the surgical area. NEUROLOGIC: Awake. LABORATORY AND DIAGNOSTIC DATA: White blood cell 16, hemoglobin 15, and platelets 302,000. BUN 13 and creatinine 0.7. Liver function tests unremarkable. ASSESSMENT: The patient is a 66-year-old male with multiple medical problems as listed above, who has: 1. Infected penile prosthesis, status post removal. 2. . PLAN: 1. We will continue the patient on vancomycin and Zosyn. 2. Monitor CBC. 3. Monitor BNP. 4. Monitor cultures. 5. Based on the patient's clinical course and labs, we will do further recommendations. Thank you, Dr. Valles, for allowing me to participate in the care of this patient. I will follow the patient with you during this hospitalization. Sascha Tabor M.D. DR: TAMMIE JOB#: [id number] CC:
[2017-01-21] MEDS ORDERED: Vancomycin 1250mg/D5W 275ml IVPB ONE ×2 (01:00)
[2017-01-21 04:00] VITALS: BP 125/79
[2017-01-21] MEDS: Piperacillin/Tazobactam 3.375 GM in NS 110 ML IVPB SCH ×3 (04:24→16:14)
[2017-01-21] MEDS ORDERED: Vancomycin 1gm inj IVPB ONE (04:57)
[2017-01-21] MEDS: D5 1/2NS w/KCl 20mEq 1,000 ML IV SCH ×2 (07:21→16:15)
[2017-01-21 08:00] VITALS: BP 138/67
[2017-01-21 08:34] LABS: MEAN CORPUSCULAR HEMOGLOBIN 30.8 PG (27.0-31.0); MEAN CORPUSCULAR HGB CONC 33.5 G/DL (32.0-36.0); MEAN CORPUSCULAR VOLUME 92 FL (80-99); PLATELET COUNT 304 K/UL (150-450); RED CELL DISTRIBUTION WIDTH 11.9 % (11.6-14.8); WHITE BLOOD COUNT 18.1 K/UL (4.8-10.8)
[2017-01-21 08:52] LABS: ALANINE AMINOTRANSFERASE 21 U/L (3-41); ASPARTATE AMINO TRANSFERASE 27 U/L (5-40); CALCIUM 8.1 mg/dL (8.6-10.2); CARBON DIOXIDE 24 mEQ/L (20-30); CHLORIDE 93 mEQ/L (98-107); CREATININE 0.7 mg/dL (0.7-1.2); GLOMERULAR FILTRATION RATE > 60 mL/min (>60); HEMOLYSIS 5; MAGNESIUM 1.9 mg/dL (1.7-2.5); PHOSPHORUS 1.5 mg/dL (2.5-4.8); SODIUM 134 mEQ/L (135-145); TOTAL PROTEIN 6.2 g/dL (6.6-8.7)
[2017-01-21 08:59] LABS: ANION GAP 17 (5-15)
[2017-01-21] MEDS: Carvedilol 25mg Tab ORAL SCH ×2 (09:15→20:02)
[2017-01-21] MEDS: Docusate 100mg cap ORAL SCH ×2 (09:15→18:18)
[2017-01-21 09:27] LABS: POTASSIUM 2.6 mEQ/L (3.4-4.9)
[2017-01-21] MEDS: HYDROmorphone 1mg/ml Carpuject IVP PRN ×6 (09:42→22:18)
--- NOTE | 2017-01-21 10:17 | Pulmonology Progress Note ---
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 - Removal of penile prosthesis, urethral reconstruction , closure of the urethral perforation and erosion and Foss catheter placement ST HTN urgency erectile dysfunction Hx of CVA PLAN OF CARE tele O2 HHN prn abx ID follows leukocytosis with trend up today ST resolved, likely due to hypovolemia BP management with multiple regimen of anti HTN - BB, ARB and CCB cardio follows continue statin K replaced bowel regimen pain management, increase dose of Dilaudid case discussed and evaluated by supervising physician Subjective Allergies: Coded Allergies: No Known Allergies (Unverified , 01/18/17) All Systems: reviewed and negative except above - leukocytosis today Subjective leukocytosis with trend up today -18 c/o pain, not feeling well K- low Objective Last 24 Hour Vital Signs Date Time Temp Pulse Resp B/P Pulse Ox O2 Delivery O2 Flow Rate FiO2 01/21/17 09:16 95 138/67 01/21/17 09:15 95 138/67 01/21/17 08:00 96.9 100 17 138/67 98 Room Air 01/21/17 04:00 98.0 124 20 125/79 Room Air 01/21/17 04:00 96 01/21/17 00:16 171/100 01/21/17 00:00 91 01/21/17 00:00 97.9 82 20 171/100 Room Air 01/20/17 23:31 185/86 01/20/17 21:21 104 185/86 01/20/17 20:00 87 01/20/17 20:00 98.2 104 24 185/86 96 Room Air 01/20/17 19:53 Nasal Cannula 2.0 01/20/17 19:53 98 Nasal Cannula 2.0 01/20/17 16:41 97 Nasal Cannula 2.0 01/20/17 16:41 Nasal Cannula 2.0 01/20/17 15:19 96.5 87 20 195/98 100 Nasal Cannula 2.0 01/20/17 15:13 195/98 01/20/17 13:07 81 162/96 01/20/17 12:00 77 01/20/17 11:46 190/80 01/20/17 11:30 96.7 83 20 190/80 98 Nasal Cannula 1.0 Intake and Output 01/20/17 01/21/17 19:00 07:00 Intake Total 1177.5 ml 1030.0 ml Output Total 1200 ml 1870 ml Balance -22.5 ml -840.0 ml Intake Oral 0 ml IV Total 1177.5 ml 1030.0 ml Output Urine Total 1200 ml 1850 ml Estimated Blood Loss 20 ml # Voids 2 General Appearance: no acute distress, other - awake, responsive, expressive aphasia HEENT: normocephalic, atraumatic, anicteric, mucous membranes moist Respiratory/Chest: lungs clear, no respiratory distress, no accessory muscle use Cardiovascular: normal peripheral pulses, normal rate, no JVD Abdomen: normal bowel sounds, soft, non tender, non distended Genitourinary: other - penile and scrotal edema Extremities: no edema Neurologic/Psychiatric: alert, responsive Musculoskeletal: normal muscle bulk Laboratory Tests 01/21/17 07:55: White Blood Count 18.1H, Red Blood Count 5.00, Hemoglobin 15.4, Hematocrit 45.9 , Mean Corpuscular Volume 92, Mean Corpuscular Hemoglobin 30.8, Mean Corpuscular Hemoglobin Concent 33.5, Red Cell Distribution Width 11.9, Platelet Count 304, Mean Platelet Volume 7.0, Neutrophils (%) (Auto) , Lymphocytes (%) ( Auto) , Monocytes (%) (Auto) , Eosinophils (%) (Auto) , Basophils (%) (Auto) , Neutrophils % (Manual) [Pending], Lymphocytes % (Manual) [Pending], Platelet Estimate [Pending], Platelet Morphology [Pending], Sodium Level 134L, Potassium Level 2.6*L, Chloride Level 93L, Carbon Dioxide Level 24, Anion Gap 17H, Blood Urea Nitrogen 15, Creatinine 0.7, Estimat Glomerular Filtration Rate > 60, Glucose Level 183H, Calcium Level 8.1L, Phosphorus Level 1.5L, Magnesium Level 1.9, Total Bilirubin 0.4, Aspartate Amino Transf (AST/SGOT) 27, Alanine Aminotransferase (ALT/SGPT) 21, Alkaline Phosphatase 70, Total Protein 6.2L, Albumin 3.2L, Globulin 3.0, Albumin/Globulin Ratio 1.0 Current Medications Medications (Trade) Dose Ordered Sig/Twin Route PRN Reason Start Time Stop Time Status Last Admin Dose Admin Acetaminophen (Tylenol) 650 mg Q4H PRN ORAL FEVER>100.6 01/20/17 11:00 02/19/17 10:59 Acetaminophen (Tylenol) 650 mg Q6H PRN ORAL Mild Pain (Pain Scale 1-3) 01/20/17 11:00 02/19/17 10:59 Acetaminophen/ Hydrocodone Bitart ([place] 5/325) 1 tab Q4H PRN ORAL Mild Pain (Pain Scale 1-3) 01/20/17 11:30 01/27/17 11:29 Amlodipine Besylate (Norvasc) 10 mg DAILY ORAL 01/21/17 09:00 02/20/17 08:59 01/21/17 09:16 Atorvastatin Calcium (Lipitor) 80 mg BEDTIME ORAL 01/20/17 21:00 02/19/17 20:59 01/20/17 21:22 Carvedilol (Coreg) 25 mg EVERY 12 HOURS ORAL 01/20/17 21:00 02/19/17 20:59 01/21/17 09:15 Clonazepam (KlonoPIN) 0.5 mg DAILY PRN ORAL For Anxiety 01/20/17 16:30 01/27/17 16:29 Clonidine HCl (Catapres) 0.1 mg Q4H PRN ORAL SBP >160 mm Hg 01/20/17 12:26 02/19/17 12:25 01/20/17 23:31 Dextrose/ Electrolytes 1,000 ml @ 100 mls/hr Q10H IV 01/20/17 11:00 02/19/17 10:59 01/21/17 07:21 Docusate Sodium (Colace) 100 mg TWICE A DAY ORAL 01/20/17 18:00 02/19/17 17:59 01/21/17 09:15 Fluconazole/ Sodium Chloride (Diflucan 200mg/ 100ml Premix) 100 ml @ 100 mls/hr Q24H IV 01/20/17 20:00 01/27/17 19:59 01/20/17 21:22 Hydralazine HCl 10 mg 10 mg Q4H PRN IV For SBP >160 01/20/17 11:30 02/19/17 11:29 01/21/17 00:16 Hydromorphone HCl (Dilaudid) 1 mg Q3H PRN IVP Breakthrough Pain 01/20/17 11:30 01/27/17 11:29 01/21/17 09:42 Irbesartan (Avapro) 75 mg DAILY ORAL 01/21/17 20:00 02/20/17 19:59 Ketorolac Tromethamine (Toradol 30mg) 15 mg Q6H PRN IV Moderate Pain (Pain Scale 4-6) 01/20/17 11:30 01/25/17 11:29 01/20/17 12:59 Ondansetron HCl (Zofran) 4 mg Q6H PRN IVP Nausea & Vomiting 01/20/17 11:30 02/19/17 11:29 01/20/17 12:42 Piperacillin Sod/ Tazobactam Sod/ Sodium Chloride (Zosyn/Sodium Chloride) 110 ml @ 27.5 mls/hr Q8H IVPB 01/20/17 16:00 01/27/17 15:59 01/21/17 09:17 Potassium Chloride (K-Dur) 40 meq ONCE ONCE ORAL 01/21/17 10:15 01/21/17 10:16 UNV Temazepam (Restoril) 7.5 mg QHS PRN ORAL Insomnia 01/20/17 21:00 01/27/17 20:59 Vancomycin HCl 1 ea 1 ea DAILY PRN MISC Per rx protocol 01/20/17 23:45 02/19/17 23:44 Vancomycin HCl/ Dextrose (Vancomycin/D5W) 275 ml @ 183.708 mls/hr Q12H IVPB 01/21/17 13:00 01/26/17 12:59 Kari Rivas NP ([facility]) Jan 21, 2017 10:17
[2017-01-21 10:27] LABS: BAND NEUTROPHILS % (MANUAL) 0 % (0-8); BASOPHILS % (MANUAL) 0 % (0-2); EOSINOPHILS % (MANUAL) 0 % (0-3); LYMPHOCYTES % (MANUAL) 7 % (20-45); NEUTROPHILS % (MANUAL) 84 % (45-75); PLATELET ESTIMATE ADEQUATE; PLATELET MORPHOLOGY NORMAL; TOTAL CELLS COUNTED 100
[2017-01-21] MEDS ORDERED: D5W 275ml ONE (10:40)
[2017-01-21] MEDS ORDERED: Tubing IV Secondary IV ONE (10:40)
[2017-01-21] MEDS ORDERED: NS 275ml ONE (10:40)
--- NOTE | 2017-01-21 11:45 | Infectious Diseases Prog Note ---
Assessment/Plan Assessment/Plan A: The patient is a 66-year-old male with Infected penile prosthesis, status post removal Leucocytosis HTN. CVA Erectile dysfunction History of GERD PLAN: continue the patient on vancomycin and Zosyn d# 3 / 10 , upon DC will cont pt on clinda 300 tid and Cipro 500 bid to complete the course Monitor CBC. Monitor BNP. Monitor cultures 'not ready for DC ,as WBC has not improved, DW PCP Subjective Allergies: Coded Allergies: No Known Allergies (Unverified , 01/18/17) Subjective afebrile Objective Vital Signs Last 24 Hour Vital Signs Date Time Temp Pulse Resp B/P Pulse Ox O2 Delivery O2 Flow Rate FiO2 01/21/17 09:16 95 138/67 01/21/17 09:15 95 138/67 01/21/17 08:00 96.9 100 17 138/67 98 Room Air 01/21/17 04:00 98.0 124 20 125/79 Room Air 01/21/17 04:00 96 01/21/17 00:16 171/100 01/21/17 00:00 91 01/21/17 00:00 97.9 82 20 171/100 Room Air 01/20/17 23:31 185/86 01/20/17 21:21 104 185/86 01/20/17 20:00 87 01/20/17 20:00 98.2 104 24 185/86 96 Room Air 01/20/17 19:53 Nasal Cannula 2.0 01/20/17 19:53 98 Nasal Cannula 2.0 01/20/17 16:41 97 Nasal Cannula 2.0 01/20/17 16:41 Nasal Cannula 2.0 01/20/17 15:19 96.5 87 20 195/98 100 Nasal Cannula 2.0 01/20/17 15:13 195/98 01/20/17 13:07 81 162/96 01/20/17 12:00 77 01/20/17 11:46 190/80 01/20/17 11:30 96.7 83 20 190/80 98 Nasal Cannula 1.0 Height (Feet): 5 Height (Inches): 6.00 Weight (Pounds): 138 HEENT: anicteric Respiratory/Chest: lungs clear Cardiovascular: regular rhythm Abdomen: non distended Laboratory Tests Test 01/21/17 07:55 White Blood Count 18.1 K/UL (4.8-10.8) H Red Blood Count 5.00 M/UL (4.70-6.10) Hemoglobin 15.4 G/DL (14.2-18.0) Hematocrit 45.9 % (42.0-52.0) Mean Corpuscular Volume 92 FL (80-99) Mean Corpuscular Hemoglobin 30.8 PG (27.0-31.0) Mean Corpuscular Hemoglobin Concent 33.5 G/DL (32.0-36.0) Red Cell Distribution Width 11.9 % (11.6-14.8) Platelet Count 304 K/UL (150-450) Mean Platelet Volume 7.0 FL (6.5-10.1) Neutrophils (%) (Auto) % (45.0-75.0) Lymphocytes (%) (Auto) % (20.0-45.0) Monocytes (%) (Auto) % (1.0-10.0) Eosinophils (%) (Auto) % (0.0-3.0) Basophils (%) (Auto) % (0.0-2.0) Differential Total Cells Counted 100 Neutrophils % (Manual) 84 % (45-75) H Lymphocytes % (Manual) 7 % (20-45) L Monocytes % (Manual) 9 % (1-10) Eosinophils % (Manual) 0 % (0-3) Basophils % (Manual) 0 % (0-2) Band Neutrophils 0 % (0-8) Platelet Estimate Adequate Platelet Morphology Normal Red Blood Cell Morphology Normal Sodium Level 134 mEQ/L (135-145) L Potassium Level 2.6 mEQ/L (3.4-4.9) *L Chloride Level 93 mEQ/L (98-107) L Carbon Dioxide Level 24 mEQ/L (20-30) Anion Gap 17 (5-15) H Blood Urea Nitrogen 15 mg/dL (7-23) Creatinine 0.7 mg/dL (0.7-1.2) Estimat Glomerular Filtration Rate > 60 mL/min (>60) Glucose Level 183 mg/dL (74-106) H Calcium Level 8.1 mg/dL (8.6-10.2) L Phosphorus Level 1.5 mg/dL (2.5-4.8) L Magnesium Level 1.9 mg/dL (1.7-2.5) Total Bilirubin 0.4 mg/dL (0.0-1.2) Aspartate Amino Transf (AST/SGOT) 27 U/L (5-40) Alanine Aminotransferase (ALT/SGPT) 21 U/L (3-41) Alkaline Phosphatase 70 U/L (40-129) Total Protein 6.2 g/dL (6.6-8.7) L Albumin 3.2 g/dL (3.5-5.2) L Globulin 3.0 g/dL Albumin/Globulin Ratio 1.0 (1.0-2.7) Current Medications Medications (Trade) Dose Ordered Sig/Twin Route PRN Reason Start Time Stop Time Status Last Admin Dose Admin Acetaminophen (Tylenol) 650 mg Q4H PRN ORAL FEVER>100.6 01/20/17 11:00 02/19/17 10:59 Acetaminophen (Tylenol) 650 mg Q6H PRN ORAL Mild Pain (Pain Scale 1-3) 01/20/17 11:00 02/19/17 10:59 Acetaminophen/ Hydrocodone Bitart ([place] 5/325) 1 tab Q4H PRN ORAL Mild Pain (Pain Scale 1-3) 01/20/17 11:30 01/27/17 11:29 Amlodipine Besylate (Norvasc) 10 mg DAILY ORAL 01/21/17 09:00 02/20/17 08:59 01/21/17 09:16 Atorvastatin Calcium (Lipitor) 80 mg BEDTIME ORAL 01/20/17 21:00 02/19/17 20:59 01/20/17 21:22 Carvedilol (Coreg) 25 mg EVERY 12 HOURS ORAL 01/20/17 21:00 02/19/17 20:59 01/21/17 09:15 Clonazepam (KlonoPIN) 0.5 mg DAILY PRN ORAL For Anxiety 01/20/17 16:30 01/27/17 16:29 Clonidine HCl (Catapres) 0.1 mg Q4H PRN ORAL SBP >160 mm Hg 01/20/17 12:26 02/19/17 12:25 01/20/17 23:31 Dextrose/ Electrolytes 1,000 ml @ 100 mls/hr Q10H IV 01/20/17 11:00 02/19/17 10:59 01/21/17 07:21 Docusate Sodium (Colace) 100 mg TWICE A DAY ORAL 01/20/17 18:00 02/19/17 17:59 01/21/17 09:15 Fluconazole/ Sodium Chloride (Diflucan 200mg/ 100ml Premix) 100 ml @ 100 mls/hr Q24H IV 01/20/17 20:00 01/27/17 19:59 01/20/17 21:22 Hydralazine HCl 10 mg 10 mg Q4H PRN IV For SBP >160 01/20/17 11:30 02/19/17 11:29 01/21/17 00:16 Hydromorphone HCl (Dilaudid) 1 mg Q3H PRN IVP Breakthrough Pain 01/20/17 11:30 01/27/17 11:29 01/21/17 09:42 Irbesartan (Avapro) 75 mg DAILY ORAL 01/21/17 20:00 02/20/17 19:59 Ketorolac Tromethamine (Toradol 30mg) 15 mg Q6H PRN IV Moderate Pain (Pain Scale 4-6) 01/20/17 11:30 01/25/17 11:29 01/20/17 12:59 Ondansetron HCl (Zofran) 4 mg Q6H PRN IVP Nausea & Vomiting 01/20/17 11:30 02/19/17 11:29 01/20/17 12:42 Piperacillin Sod/ Tazobactam Sod/ Sodium Chloride (Zosyn/Sodium Chloride) 110 ml @ 27.5 mls/hr Q8H IVPB 01/20/17 16:00 01/27/17 15:59 01/21/17 09:17 Temazepam (Restoril) 7.5 mg QHS PRN ORAL Insomnia 01/20/17 21:00 01/27/17 20:59 Vancomycin HCl 1 ea 1 ea DAILY PRN MISC Per rx protocol 01/20/17 23:45 02/19/17 23:44 Vancomycin HCl/ Dextrose (Vancomycin/D5W) 275 ml @ 183.708 mls/hr Q12H IVPB 01/21/17 13:00 01/26/17 12:59 DMITRIY NOBLE M.D. Jan 21, 2017 11:45
[2017-01-21 12:09] VITALS: BP 152/82
[2017-01-21] MEDS: Vancomycin 1gm/D5W 275ml IVPB SCH ×2 (13:15)
--- NOTE | 2017-01-21 14:08 | Physician Query ---
PLEASE COMPLETE DOCUMENT BEFORE SIGNING Dear Dr. Sania Valles Date: December Boarding Mother/CDS Name: ANAT Lion Boarding Mother / CDS Exercise your independent professional judgment when responding to the query. Questions asked do not imply a particular answer is desired or expected. We greatly appreciate your clarification on this issue. CLINICAL DOCUMENTATION STATES: "Leukocytosis" documented in the consultation notes of DR.Aras Tabor. CLINICAL FINDINGS SHOW: Infected penile prosthesis WBC=11.9, 16.0, 18.1 UT= 100, 94, 125, 125 Please clarify if you mean: [] SIRS (Systemic Inflammatory Response Syndrome) [] SIRS w/ Organ Dysfunction [] Sepsis [] Sepsis w/ Organ Dysfunction [] Septic Shock [] Not Applicable [] Other Condition Present on Admission: [] Yes [] No []Clinically Undeterminable Please also document in your Progress Notes and/or Discharge Summary and indicate if the condition was present on admission. Sania Valles MD Date/Time [facility]
--- NOTE | 2017-01-21 16:16 | Progress Note ---
CARDIOLOGY PROGRESS NOTE SUBJECTIVE: Critical Care for 42 minutes. The patient was seen and evaluated. Case was discussed with Dr. Adorno yesterday. The patient is status post removal of infected penile prosthesis. The patient remains on a ekg monitor. He has had recurring blood pressure spikes to malignant range, most notably early this morning 171/100 with heart rate of 91 and respiratory rate of 18. There have been heart rates up to 124 documented as well. The patient has a expressive aphasia, but presently appears in no distress. Medication regimen is reviewed. OBJECTIVE: GENERAL: Currently, no distress. VITAL SIGNS: Blood pressure 138/67, pulse 95, respiratory rate 20 and oxygen saturation 98% on room air. NECK: Supple. LUNGS: Clear. CARDIAC: Regular rhythm rate. Normal S1 and S2 with a fourth heart sound. ABDOMEN: Slightly tender. EXTREMITIES: No edema. LABORATORY AND DIAGNOSTIC DATA: White count 18 and hemoglobin 15. Potassium 2.6. Magnesium 1.9. Phosphorus 1.5. Albumin 3.2. IMPRESSION: 1. Hypertensive urgency. 2. Paroxysmal sinus tachycardia. 3. Sepsis, status post removal of infected prosthesis. 4. Cerebrovascular accident with aphasia. 5. Hypokalemia. 6. Hypophosphatemia. PLAN: 1. Replace potassium. 2. Replace phosphorus. 3. Titration of antihypertensives is ongoing and the orders have been updated. 4. Beta-blockade is on board and is adequate at this time. 5. DVT prophylaxis. 6. Antibiotics per Infectious Disease management consultant. 7. Continue cardiac monitoring and current level nursing support. Roni Jose M.D. DR: ISABEL JOB#: [id number] CC:
[2017-01-21 16:17] VITALS: BP 127/82
--- NOTE | 2017-01-21 18:31 | Operative Note - Dictated ---
DATE OF OPERATION: 01/19/2017 PREOPERATIVE DIAGNOSIS: Infected and malfunctioning penile prosthesis. POSTOPERATIVE DIAGNOSIS: Infected and malfunctioning penile prosthesis. OPERATION: Removal of penile prosthesis, urethral reconstruction, closure of the urethral perforation and erosion and Foss catheter placement. SURGEON: Hugo Cisneros M.D. ANESTHESIA: General. FINDINGS: Eroded penile prosthesis in the distal pendulous urethra. INDICATION FOR SURGERY: The patient had a penile prosthesis made and tolerated surgery well. One-month postop, he was doing well. Prosthesis was activated. Several days later, the patient came in complaining that he had a vigorous sexual intercourse and started noticing pain in his penis, however at that point, there was no significant erythema or pain. The patient was voiding normally, and progressing over the next course of 2 weeks, the patient developed more swelling and pain in the distal penis, he thinks obviously the prosthesis is either eroded or perforated and becoming infected. Treatment options explained to him in great length and I explained to him that I have to remove prosthesis and revise the situation. He understands the nature of the procedure and signed a consent. DESCRIPTION OF PROCEDURE: He was brought to the operating room, placed in supine position and prepped and draped in standard fashion. Under general anesthesia, penoscrotal incision was made. Older tubes and components of the prosthesis were mobilized. The corpora was opened and old instrument were removed for pathologic examination including the Foss catheter. It was noted that there was a distal perforation between the urethra and right corpora. advance to find the actual urethral lumen was not successful. Decision was made to open up the urethra at the level and retrograde placed a Foss catheter, which was accomplished. Foss was eventually placed into the bladder, which was reconstructed using interrupted 4-0 Vicryl sutures. Copious irrigations of corpora with Betadine, peroxide, and multiple antibiotic solutions. After that, corpora was closed as well as the wound. Intraoperative dressing. Sponge count and instrument count were correct. The patient was started IV antibiotics including vancomycin and preparation and transferred to recovery in stable condition. Hugo Cisneros M.D. DR: CHUCHO JOB#: [id number] CC:
[2017-01-21 20:00] VITALS: BP 150/86
[2017-01-21] MEDS: Atorvastatin 80mg tab ORAL SCH (20:02)
[2017-01-22] VITALS (7 sets, daily range): BP systolic 113–168; BP diastolic 62–86
[2017-01-22] MEDS: Piperacillin/Tazobactam 3.375 GM in NS 110 ML IVPB SCH ×3 (00:19→15:21)
[2017-01-22] MEDS: Vancomycin 1gm/D5W 275ml IVPB SCH ×2 (01:08)
[2017-01-22] MEDS: HYDROmorphone 1mg/ml Carpuject IVP PRN ×8 (01:30→23:03)
[2017-01-22] MEDS: D5 1/2NS w/KCl 20mEq 1,000 ML IV SCH ×3 (03:02→23:02)
[2017-01-22 06:38] LABS: MEAN CORPUSCULAR HEMOGLOBIN 31.4 PG (27.0-31.0); MEAN CORPUSCULAR HGB CONC 34.2 G/DL (32.0-36.0); MEAN CORPUSCULAR VOLUME 92 FL (80-99); MEAN PLATELET VOLUME 7.3 FL (6.5-10.1); PLATELET COUNT 279 K/UL (150-450); RED BLOOD COUNT 4.74 M/UL (4.70-6.10); RED CELL DISTRIBUTION WIDTH 11.5 % (11.6-14.8); WHITE BLOOD COUNT 17.7 K/UL (4.8-10.8)
[2017-01-22 06:46] LABS: ALANINE AMINOTRANSFERASE 26 U/L (3-41); ANION GAP 12 (5-15); ASPARTATE AMINO TRANSFERASE 37 U/L (5-40); CALCIUM 8.1 mg/dL (8.6-10.2); CARBON DIOXIDE 24 mEQ/L (20-30); CHLORIDE 97 mEQ/L (98-107); CREATININE 0.6 mg/dL (0.7-1.2); GLOMERULAR FILTRATION RATE > 60 mL/min (>60); HEMOLYSIS 8; MAGNESIUM 1.6 mg/dL (1.7-2.5); POTASSIUM 3.2 mEQ/L (3.4-4.9); SODIUM 133 mEQ/L (135-145); TOTAL PROTEIN 5.8 g/dL (6.6-8.7)
[2017-01-22] MEDS: Docusate 100mg cap ORAL SCH ×2 (08:26→17:01)
[2017-01-22] MEDS: Carvedilol 25mg Tab ORAL SCH ×2 (08:28→20:21)
--- NOTE | 2017-01-22 10:06 | Pulmonology Progress Note ---
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 - Removal of penile prosthesis, urethral reconstruction , closure of the urethral perforation and erosion and Foss catheter placement ST HTN urgency erectile dysfunction Hx of CVA e/lite imbalance ( hypo K, hypo Mg) PLAN OF CARE O2 HHN prn abx ID follows still significant leukocytosis ST resolved, likely due to hypovolemia BP management with multiple regimen of anti HTN - BB, ARB and CCB cardio follows continue statin replace K and Mg, check in am bowel regimen pain management, transfer to [place] case discussed and evaluated by supervising physician Subjective Allergies: Coded Allergies: No Known Allergies (Unverified , 01/18/17) Subjective still with significant leukocytosis -17.7, afebrile pain better controlled after increased dose of analgesic K and Mg low Objective Last 24 Hour Vital Signs Date Time Temp Pulse Resp B/P Pulse Ox O2 Delivery O2 Flow Rate FiO2 01/22/17 08:32 153/80 01/22/17 08:28 82 153/80 01/22/17 08:26 82 153/80 01/22/17 08:00 80 01/22/17 07:57 Nasal Cannula 2.0 01/22/17 07:56 99 Nasal Cannula 2.0 01/22/17 07:46 97.0 82 18 153/80 99 Nasal Cannula 2.0 01/22/17 04:07 168/65 01/22/17 04:00 97.5 72 18 168/76 98 Nasal Cannula 2.0 28 01/22/17 04:00 82 01/22/17 00:10 157/85 01/22/17 00:00 97.3 18 163/78 98 Nasal Cannula 2.0 01/22/17 00:00 80 01/21/17 22:48 97.2 01/21/17 20:02 92 156/84 01/21/17 20:01 156/88 01/21/17 20:00 98 Nasal Cannula 2.0 28 01/21/17 20:00 Nasal Cannula 2.0 28 01/21/17 20:00 80 18 150/86 98 Nasal Cannula 2.0 28 01/21/17 20:00 90 01/21/17 16:17 97.2 83 17 127/82 98 Nasal Cannula 2.0 83 01/21/17 12:09 98.2 83 18 152/82 98 Nasal Cannula 2.0 01/21/17 12:00 80 Intake and Output 01/21/17 01/22/17 19:00 07:00 Intake Total 1962.416 ml 2262.5 ml Output Total 1200 ml Balance 762.416 ml 2262.5 ml Intake Oral 230 ml IV Total 1732.416 ml 2262.5 ml Output Urine Total 1200 ml Objective General Appearance: no acute distress, other - awake, responsive, expressive aphasia HEENT: normocephalic, atraumatic, anicteric, mucous membranes moist Respiratory/Chest: lungs clear, no respiratory distress, no accessory muscle use Cardiovascular: normal peripheral pulses, normal rate, no JVD Abdomen: normal bowel sounds, soft, non tender, non distended Genitourinary: other - penile and scrotal edema Extremities: no edema Neurologic/Psychiatric: alert, responsive Musculoskeletal: normal muscle bulk Laboratory Tests 01/22/17 05:35: White Blood Count 17.7H, Red Blood Count 4.74, Hemoglobin 14.9, Hematocrit 43.5 , Mean Corpuscular Volume 92, Mean Corpuscular Hemoglobin 31.4H, Mean Corpuscular Hemoglobin Concent 34.2, Red Cell Distribution Width 11.5L, Platelet Count 279, Mean Platelet Volume 7.3, Neutrophils (%) (Auto) , Lymphocytes (%) (Auto) , Monocytes (%) (Auto) , Eosinophils (%) (Auto) , Basophils (%) (Auto) , Neutrophils % (Manual) [Pending], Lymphocytes % (Manual) [Pending], Platelet Estimate [Pending], Platelet Morphology [Pending], Sodium Level 133L, Potassium Level 3.2L, Chloride Level 97L, Carbon Dioxide Level 24, Anion Gap 12, Blood Urea Nitrogen 13, Creatinine 0.6L, Estimat Glomerular Filtration Rate > 60, Glucose Level 150H, Calcium Level 8.1L, Magnesium Level 1.6L, Total Bilirubin 0.4, Aspartate Amino Transf (AST/SGOT) 37, Alanine Aminotransferase (ALT/SGPT) 26, Alkaline Phosphatase 69, Pro-B-Type Natriuretic Peptide 1328H, Total Protein 5.8L, Albumin 2.9L, Globulin 2.9, Albumin/Globulin Ratio 1.0 Current Medications Medications (Trade) Dose Ordered Sig/Twin Route PRN Reason Start Time Stop Time Status Last Admin Dose Admin Acetaminophen (Tylenol) 650 mg Q4H PRN ORAL FEVER>100.6 01/20/17 11:00 02/19/17 10:59 Acetaminophen (Tylenol) 650 mg Q6H PRN ORAL Mild Pain (Pain Scale 1-3) 01/20/17 11:00 02/19/17 10:59 Acetaminophen/ Hydrocodone Bitart ([place] 5/325) 1 tab Q4H PRN ORAL Mild Pain (Pain Scale 1-3) 01/20/17 11:30 01/27/17 11:29 Amlodipine Besylate (Norvasc) 10 mg DAILY ORAL 01/21/17 09:00 02/20/17 08:59 01/22/17 08:26 Atorvastatin Calcium (Lipitor) 80 mg BEDTIME ORAL 01/20/17 21:00 02/19/17 20:59 01/21/17 20:02 Carvedilol (Coreg) 25 mg EVERY 12 HOURS ORAL 01/20/17 21:00 02/19/17 20:59 01/22/17 08:28 Clonazepam (KlonoPIN) 0.5 mg DAILY PRN ORAL For Anxiety 01/20/17 16:30 01/27/17 16:29 Clonidine HCl (Catapres) 0.1 mg Q4H PRN ORAL SBP >160 mm Hg 01/20/17 12:26 02/19/17 12:25 01/22/17 04:07 Dextrose/ Electrolytes 1,000 ml @ 100 mls/hr Q10H IV 01/20/17 11:00 02/19/17 10:59 01/22/17 03:02 Docusate Sodium (Colace) 100 mg TWICE A DAY ORAL 01/20/17 18:00 02/19/17 17:59 01/22/17 08:26 Fluconazole/ Sodium Chloride (Diflucan 200mg/ 100ml Premix) 100 ml @ 100 mls/hr Q24H IV 01/20/17 20:00 01/27/17 19:59 01/21/17 20:02 Hydralazine HCl 10 mg 10 mg Q4H PRN IV For SBP >160 01/20/17 11:30 02/19/17 11:29 01/21/17 00:16 Hydromorphone HCl 2 mg 2 mg Q3H PRN IVP Breakthrough Pain 01/21/17 14:30 01/28/17 14:29 01/22/17 07:53 Irbesartan (Avapro) 150 mg DAILY ORAL 01/21/17 20:00 02/20/17 19:59 01/22/17 08:32 Ketorolac Tromethamine (Toradol 30mg) 15 mg Q6H PRN IV Moderate Pain (Pain Scale 4-6) 01/20/17 11:30 01/25/17 11:29 01/20/17 12:59 Magnesium Sulfate (Magnesium Sulfate 1gm/100ml) 100 ml @ 100 mls/hr Q1H IVPB 01/22/17 09:30 01/22/17 11:29 01/22/17 09:16 Ondansetron HCl (Zofran) 4 mg Q6H PRN IVP Nausea & Vomiting 01/20/17 11:30 02/19/17 11:29 01/22/17 00:28 Piperacillin Sod/ Tazobactam Sod/ Sodium Chloride (Zosyn/Sodium Chloride) 110 ml @ 27.5 mls/hr Q8H IVPB 01/20/17 16:00 01/27/17 15:59 01/22/17 07:53 Temazepam (Restoril) 7.5 mg QHS PRN ORAL Insomnia 01/20/17 21:00 01/27/17 20:59 Vancomycin HCl 1 ea 1 ea DAILY PRN MISC Per rx protocol 01/20/17 23:45 02/19/17 23:44 Vancomycin HCl/ Dextrose (Vancomycin/D5W) 275 ml @ 183.708 mls/hr Q12H IVPB 01/21/17 13:00 01/26/17 12:59 01/22/17 01:08 Kari Rivas NP ([facility]) Jan 22, 2017 10:06
[2017-01-22 10:43] LABS: BAND NEUTROPHILS % (MANUAL) 0 % (0-8); BASOPHILS % (MANUAL) 0 % (0-2); EOSINOPHILS % (MANUAL) 1 % (0-3); LYMPHOCYTES % (MANUAL) 12 % (20-45); NEUTROPHILS % (MANUAL) 83 % (45-75); PLATELET ESTIMATE ADEQUATE; PLATELET MORPHOLOGY NORMAL; TOTAL CELLS COUNTED 100
[2017-01-22] MEDS ORDERED: NS 275ml ONE (11:16)
[2017-01-22] MEDS ORDERED: Tubing IV Secondary IV ONE (11:16)
--- NOTE | 2017-01-22 15:30 | Infectious Diseases Prog Note ---
Assessment/Plan Assessment/Plan A: The patient is a 66-year-old male with Infected penile prosthesis, status post removal Leucocytosis Weakness HTN. CVA Erectile dysfunction History of GERD PLAN: continue the patient on vancomycin and Zosyn d# 4 / 10 , upon DC will cont pt on clinda 300 tid and Cipro 500 bid to complete the course Monitor CBC. Monitor BNP. Monitor cultures 'not ready for DC ,as WBC has not improved, DW PCP Subjective Constitutional: Denies: anorexia, chills, drenching sweats, fatigue, fever, no symptoms, other Allergies: Coded Allergies: No Known Allergies (Unverified , 01/18/17) Subjective feeling weak afebrile Objective Vital Signs Last 24 Hour Vital Signs Date Time Temp Pulse Resp B/P Pulse Ox O2 Delivery O2 Flow Rate FiO2 01/22/17 12:00 77 01/22/17 11:40 97.0 79 18 127/68 99 Nasal Cannula 2.0 01/22/17 08:32 153/80 01/22/17 08:28 82 153/80 01/22/17 08:26 82 153/80 01/22/17 08:00 80 01/22/17 07:57 Nasal Cannula 2.0 01/22/17 07:56 99 Nasal Cannula 2.0 01/22/17 07:46 97.0 82 18 153/80 99 Nasal Cannula 2.0 01/22/17 04:07 168/65 01/22/17 04:00 97.5 72 18 168/76 98 Nasal Cannula 2.0 28 01/22/17 04:00 82 01/22/17 00:10 157/85 01/22/17 00:00 97.3 18 163/78 98 Nasal Cannula 2.0 28 01/22/17 00:00 80 01/21/17 22:48 97.2 01/21/17 20:02 92 156/84 01/21/17 20:01 156/88 01/21/17 20:00 98 Nasal Cannula 2.0 28 01/21/17 20:00 Nasal Cannula 2.0 28 01/21/17 20:00 80 18 150/86 98 Nasal Cannula 2.0 28 01/21/17 20:00 90 01/21/17 16:17 97.2 83 17 127/82 98 Nasal Cannula 2.0 83 Height (Feet): 5 Height (Inches): 6.00 Weight (Pounds): 138 HEENT: anicteric Respiratory/Chest: no respiratory distress Cardiovascular: regularly irregular Abdomen: no organomegaly Skin: no lesions Laboratory Tests Test 01/22/17 05:35 01/22/17 11:44 White Blood Count 17.7 K/UL (4.8-10.8) H Red Blood Count 4.74 M/UL (4.70-6.10) Hemoglobin 14.9 G/DL (14.2-18.0) Hematocrit 43.5 % (42.0-52.0) Mean Corpuscular Volume 92 FL (80-99) Mean Corpuscular Hemoglobin 31.4 PG (27.0-31.0) H Mean Corpuscular Hemoglobin Concent 34.2 G/DL (32.0-36.0) Red Cell Distribution Width 11.5 % (11.6-14.8) L Platelet Count 279 K/UL (150-450) Mean Platelet Volume 7.3 FL (6.5-10.1) Neutrophils (%) (Auto) % (45.0-75.0) Lymphocytes (%) (Auto) % (20.0-45.0) Monocytes (%) (Auto) % (1.0-10.0) Eosinophils (%) (Auto) % (0.0-3.0) Basophils (%) (Auto) % (0.0-2.0) Differential Total Cells Counted 100 Neutrophils % (Manual) 83 % (45-75) H Lymphocytes % (Manual) 12 % (20-45) L Monocytes % (Manual) 4 % (1-10) Eosinophils % (Manual) 1 % (0-3) Basophils % (Manual) 0 % (0-2) Band Neutrophils 0 % (0-8) Platelet Estimate Adequate Platelet Morphology Normal Red Blood Cell Morphology Normal Sodium Level 133 mEQ/L (135-145) L Potassium Level 3.2 mEQ/L (3.4-4.9) L Chloride Level 97 mEQ/L (98-107) L Carbon Dioxide Level 24 mEQ/L (20-30) Anion Gap 12 (5-15) Blood Urea Nitrogen 13 mg/dL (7-23) Creatinine 0.6 mg/dL (0.7-1.2) L Estimat Glomerular Filtration Rate > 60 mL/min (>60) Glucose Level 150 mg/dL (74-106) H Calcium Level 8.1 mg/dL (8.6-10.2) L Magnesium Level 1.6 mg/dL (1.7-2.5) L Total Bilirubin 0.4 mg/dL (0.0-1.2) Aspartate Amino Transf (AST/SGOT) 37 U/L (5-40) Alanine Aminotransferase (ALT/SGPT) 26 U/L (3-41) Alkaline Phosphatase 69 U/L (40-129) Pro-B-Type Natriuretic Peptide 1328 pg/mL (0-125) H Total Protein 5.8 g/dL (6.6-8.7) L Albumin 2.9 g/dL (3.5-5.2) L Globulin 2.9 g/dL Albumin/Globulin Ratio 1.0 (1.0-2.7) Vancomycin Level Trough 22.5 ug/mL (5.0-12.0) H Current Medications Medications (Trade) Dose Ordered Sig/Twin Route PRN Reason Start Time Stop Time Status Last Admin Dose Admin Acetaminophen (Tylenol) 650 mg Q4H PRN ORAL FEVER>100.6 01/20/17 11:00 02/19/17 10:59 Acetaminophen (Tylenol) 650 mg Q6H PRN ORAL Mild Pain (Pain Scale 1-3) 01/20/17 11:00 02/19/17 10:59 Acetaminophen/ Hydrocodone Bitart ([place] 5/325) 1 tab Q4H PRN ORAL Mild Pain (Pain Scale 1-3) 01/20/17 11:30 01/27/17 11:29 Amlodipine Besylate (Norvasc) 10 mg DAILY ORAL 01/21/17 09:00 02/20/17 08:59 01/22/17 08:26 Atorvastatin Calcium (Lipitor) 80 mg BEDTIME ORAL 01/20/17 21:00 02/19/17 20:59 01/21/17 20:02 Carvedilol (Coreg) 25 mg EVERY 12 HOURS ORAL 01/20/17 21:00 02/19/17 20:59 01/22/17 08:28 Clonazepam (KlonoPIN) 0.5 mg DAILY PRN ORAL For Anxiety 01/20/17 16:30 01/27/17 16:29 Clonidine HCl (Catapres) 0.1 mg Q4H PRN ORAL SBP >160 mm Hg 01/20/17 12:26 02/19/17 12:25 01/22/17 04:07 Dextrose/ Electrolytes 1,000 ml @ 100 mls/hr Q10H IV 01/20/17 11:00 02/19/17 10:59 01/22/17 13:00 Docusate Sodium (Colace) 100 mg TWICE A DAY ORAL 01/20/17 18:00 02/19/17 17:59 01/22/17 08:26 Fluconazole (Diflucan) 200 mg DAILY ORAL 01/23/17 09:00 01/30/17 08:59 Hydralazine HCl (Apresoline) 10 mg Q4H PRN IV For SBP >160 01/20/17 11:30 02/19/17 11:29 01/21/17 00:16 Hydromorphone HCl 2 mg 2 mg Q3H PRN IVP Breakthrough Pain 01/21/17 14:30 01/28/17 14:29 01/22/17 14:01 Irbesartan (Avapro) 150 mg DAILY ORAL 01/21/17 20:00 02/20/17 19:59 01/22/17 08:32 Ketorolac Tromethamine (Toradol 30mg) 15 mg Q6H PRN IV Moderate Pain (Pain Scale 4-6) 01/20/17 11:30 01/25/17 11:29 01/20/17 12:59 Ondansetron HCl (Zofran) 4 mg Q6H PRN IVP Nausea & Vomiting 01/20/17 11:30 02/19/17 11:29 01/22/17 14:38 Piperacillin Sod/ Tazobactam Sod/ Sodium Chloride (Zosyn/Sodium Chloride) 110 ml @ 27.5 mls/hr Q8H IVPB 01/20/17 16:00 01/27/17 15:59 01/22/17 15:21 Temazepam (Restoril) 7.5 mg QHS PRN ORAL Insomnia 01/20/17 21:00 01/27/17 20:59 Vancomycin HCl (Vanco rx to dose) 1 ea DAILY PRN MISC Per rx protocol 01/20/17 23:45 02/19/17 23:44 Vancomycin HCl/ Dextrose (Vancomycin/D5W) 275 ml @ 183.708 mls/hr Q12HR@0230,1430 IVPB 01/23/17 02:30 01/28/17 02:29 DMITRIY NOBLE M.D. Jan 22, 2017 15:30
[2017-01-22] MEDS: Atorvastatin 80mg tab ORAL SCH (20:21)
--- NOTE | 2017-01-22 23:02 | Progress Note ---
DATE: 01/22/2017 CARDIOLOGY PROGRESS NOTE: SUBJECTIVE: The patient is status post removal of infected penile prosthesis. 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 No significant ectopy noted. OBJECTIVE: VITAL SIGNS: Blood pressure is 113/62 to 161/86, heart rate 77, respiratory rate 18, and the patient is afebrile. LUNGS: Clear breath sounds. CARDIAC: Regular rhythm and rate. Normal S1 and S2 with a fourth heart sound. ABDOMEN: Soft. With trace dependent edema. LABORATORY DATA: White count is 17.7 and hemoglobin 14.9. Potassium is 3.2 and magnesium 1.6. Albumin is 2.9. Pro-natriuretic peptide is 1300. IMPRESSION: 1. Sepsis, status post removal of infected and malfunctioning penile prosthesis. 2. Hypokalemia. 3. Hypomagnesemia. 4. Hypertensive urgency, resolved. 5. Hypertensive heart disease with rising blood pressure trend, likely precipitated by pain. 6. History of cerebrovascular accident. PLAN: 1. Titrate antihypertensive. 2. Adjust intravenous fluids. 3. Replace potassium and magnesium. 4. Antimicrobials. 5. Pain control. 6. Stress ulcer and deep venous thrombosis prophylaxis. Roni Jose M.D. DR: Kassi JOB#: [id number] CC:
[2017-01-23] VITALS (8 sets, daily range): BP systolic 128–191; BP diastolic 62–85
[2017-01-23] MEDS: Piperacillin/Tazobactam 3.375 GM in NS 110 ML IVPB SCH ×4 (00:02→23:27)
[2017-01-23] MEDS ORDERED: Vancomycin 750mg/D5W 275ml IVPB SCH ×2 (02:30)
[2017-01-23] MEDS: HYDROmorphone 1mg/ml Carpuject IVP PRN ×7 (02:30→21:57)
[2017-01-23 07:28] LABS: BASOPHILS % (AUTO) 0.2 % (0.0-2.0); EOSINOPHILS % (AUTO) 0.4 % (0.0-3.0); LYMPHOCYTES % (AUTO) 8.8 % (20.0-45.0); MEAN CORPUSCULAR HEMOGLOBIN 31.6 PG (27.0-31.0); MEAN CORPUSCULAR HGB CONC 34.3 G/DL (32.0-36.0); MEAN CORPUSCULAR VOLUME 92 FL (80-99); MEAN PLATELET VOLUME 7.6 FL (6.5-10.1); MONOCYTES % (AUTO) 6.1 % (1.0-10.0); NEUTROPHILS % (AUTO) 84.5 % (45.0-75.0); PLATELET COUNT 266 K/UL (150-450); RED CELL DISTRIBUTION WIDTH 11.6 % (11.6-14.8); WHITE BLOOD COUNT 17.2 K/UL (4.8-10.8)
[2017-01-23 08:01] LABS: ANION GAP 10 (5-15); CARBON DIOXIDE 24 mEQ/L (20-30); CHLORIDE 96 mEQ/L (98-107); CREATININE 0.6 mg/dL (0.7-1.2); GLOMERULAR FILTRATION RATE > 60 mL/min (>60); HEMOLYSIS 6; MAGNESIUM 1.7 mg/dL (1.7-2.5); POTASSIUM 3.5 mEQ/L (3.4-4.9); SODIUM 130 mEQ/L (135-145)
[2017-01-23] MEDS ORDERED: clonazePAM 0.5mg tab ORAL PRN (09:00)
[2017-01-23] MEDS ORDERED: Fluconazole 100mg tab ORAL SCH (09:00)
[2017-01-23] MEDS ORDERED: D5 1/2NS w/KCl 20mEq 1,000 ML IV SCH (09:00)
[2017-01-23] MEDS: Docusate 100mg cap ORAL SCH ×2 (09:19→17:14)
--- NOTE | 2017-01-23 09:19 | Cardiology Report ---
APPROVED REPORT EKG Measurement Heart [id number] Sinus rhythm with premature supraventricular complexes Left axis deviation Inferior infarct, age undetermined Prolonged QT Abnormal ECG
[2017-01-23] MEDS: Carvedilol 25mg Tab ORAL SCH ×2 (09:21→20:49)
[2017-01-23] MEDS: Fluconazole 100mg tab ORAL SCH (09:22)
--- NOTE | 2017-01-23 11:15 | Infectious Diseases Prog Note ---
Assessment/Plan Assessment/Plan A: Infected / malfunctioning Penile prothesis Leukocytosis HPN Hyponatremia P; continue the patient on vancomycin and Zosyn d# 5 / 10 , upon DC will cont pt on clindamycin 300 tid and Cipro 500 bid to complete the course case was discussed with ANDRES Rivas Subjective ROS Limited/Unobtainable: No Constitutional: Reports: no symptoms Cardiovascular: Reports: no symptoms Gastrointestinal/Abdominal: Reports: other - poor appetite Genitourinary: Reports: dysuria Musculoskeletal: Reports: no symptoms Allergies: Coded Allergies: No Known Allergies (Unverified , 01/18/17) Objective Vital Signs Last 24 Hour Vital Signs Date Time Temp Pulse Resp B/P Pulse Ox O2 Delivery O2 Flow Rate FiO2 01/23/17 09:22 82 191/81 01/23/17 09:21 82 191/81 01/23/17 08:00 98.1 82 20 191/81 98 Room Air 01/23/17 06:41 72 01/23/17 06:29 97.0 84 19 140/71 100 Nasal Cannula 2.0 01/23/17 04:00 98.1 84 20 156/71 100 Nasal Cannula 2.0 01/23/17 00:00 96.6 85 20 151/78 98 Nasal Cannula 2.0 01/22/17 23:37 97 01/22/17 20:21 82 161/86 01/22/17 20:00 99.7 82 20 161/86 100 Nasal Cannula 2.0 01/22/17 19:12 77 01/22/17 16:24 97.2 84 18 113/62 97 Nasal Cannula 2.0 01/22/17 16:00 88 01/22/17 12:00 77 01/22/17 11:40 97.0 79 18 127/68 99 Nasal Cannula 2.0 Height (Feet): 5 Height (Inches): 6.00 Weight (Pounds): 138 General Appearance: no acute distress HEENT: mucous membranes moist Respiratory/Chest: lungs clear Cardiovascular: normal rate Abdomen: soft, non tender, other - scar of midline surgery in lower abdomen Genitourinary: other Extremities: no edema Laboratory Tests Test 01/22/17 11:44 01/23/17 05:25 Vancomycin Level Trough 22.5 ug/mL (5.0-12.0) H White Blood Count 17.2 K/UL (4.8-10.8) H Red Blood Count 4.70 M/UL (4.70-6.10) Hemoglobin 14.8 G/DL (14.2-18.0) Hematocrit 43.2 % (42.0-52.0) Mean Corpuscular Volume 92 FL (80-99) Mean Corpuscular Hemoglobin 31.6 PG (27.0-31.0) H Mean Corpuscular Hemoglobin Concent 34.3 G/DL (32.0-36.0) Red Cell Distribution Width 11.6 % (11.6-14.8) Platelet Count 266 K/UL (150-450) Mean Platelet Volume 7.6 FL (6.5-10.1) Neutrophils (%) (Auto) 84.5 % (45.0-75.0) H Lymphocytes (%) (Auto) 8.8 % (20.0-45.0) L Monocytes (%) (Auto) 6.1 % (1.0-10.0) Eosinophils (%) (Auto) 0.4 % (0.0-3.0) Basophils (%) (Auto) 0.2 % (0.0-2.0) Sodium Level 130 mEQ/L (135-145) L Potassium Level 3.5 mEQ/L (3.4-4.9) Chloride Level 96 mEQ/L (98-107) L Carbon Dioxide Level 24 mEQ/L (20-30) Anion Gap 10 (5-15) Blood Urea Nitrogen 9 mg/dL (7-23) Creatinine 0.6 mg/dL (0.7-1.2) L Estimat Glomerular Filtration Rate > 60 mL/min (>60) Glucose Level 127 mg/dL (74-106) H Calcium Level 8.0 mg/dL (8.6-10.2) L Magnesium Level 1.7 mg/dL (1.7-2.5) Current Medications Medications (Trade) Dose Ordered Sig/Twin Route PRN Reason Start Time Stop Time Status Last Admin Dose Admin Acetaminophen (Tylenol) 650 mg Q4H PRN ORAL FEVER>100.6 01/23/17 07:00 02/22/17 06:59 Acetaminophen (Tylenol) 650 mg Q6H PRN ORAL Mild Pain (Pain Scale 1-3) 01/23/17 11:00 02/22/17 10:59 Amlodipine Besylate (Norvasc) 10 mg DAILY ORAL 01/23/17 09:00 02/22/17 08:59 01/23/17 09:22 Atorvastatin Calcium (Lipitor) 80 mg BEDTIME ORAL 01/23/17 21:00 02/22/17 20:59 Carvedilol (Coreg) 25 mg EVERY 12 HOURS ORAL 01/23/17 09:00 02/22/17 08:59 01/23/17 09:21 Clonazepam (KlonoPIN) 0.5 mg DAILY PRN ORAL For Anxiety 01/23/17 09:00 01/30/17 08:59 Clonidine HCl (Catapres) 0.1 mg Q4H PRN ORAL SBP >160 mm Hg 01/23/17 08:30 02/22/17 08:29 Dextrose/ Electrolytes 1,000 ml @ 100 mls/hr Q10H IV 01/23/17 09:00 02/22/17 08:59 01/23/17 09:23 Docusate Sodium (Colace) 100 mg TWICE A DAY ORAL 01/23/17 09:00 02/22/17 08:59 01/23/17 09:19 Fluconazole (Diflucan) 200 mg DAILY ORAL 01/23/17 09:00 01/30/17 08:59 01/23/17 09:22 Hydralazine HCl (Apresoline) 10 mg Q4H PRN IV For SBP >160 01/23/17 07:30 02/22/17 07:29 Hydromorphone HCl (Dilaudid) 2 mg Q3H PRN IVP Breakthrough Pain 01/23/17 08:30 01/30/17 08:29 01/23/17 08:53 Irbesartan (Avapro) 150 mg DAILY ORAL 01/23/17 11:00 02/22/17 10:59 Ketorolac Tromethamine (Toradol 30mg) 15 mg Q6H PRN IV Moderate Pain (Pain Scale 4-6) 01/23/17 11:30 01/25/17 11:29 Ondansetron HCl (Zofran) 4 mg Q6H PRN IVP Nausea & Vomiting 01/23/17 11:30 02/22/17 11:29 Piperacillin Sod/ Tazobactam Sod 3.375 gm/Sodium Chloride 110 ml @ 27.5 mls/hr Q8H IVPB 01/23/17 08:00 01/30/17 07:59 01/23/17 09:21 Temazepam (Restoril) 7.5 mg QHS PRN ORAL Insomnia 01/23/17 21:00 01/30/17 20:59 Vancomycin HCl (Vanco rx to dose) 1 ea DAILY PRN MISC Per rx protocol 01/23/17 09:00 02/22/17 08:59 Vancomycin HCl/ Dextrose (Vancomycin/D5W) 275 ml @ 183.708 mls/hr Q12HR@0230,1430 IVPB 01/23/17 14:30 01/28/17 14:29 BERE SOSA Jan 23, 2017 11:15
[2017-01-23] MEDS ORDERED: Ketorolac 30mg Inj IV PRN (11:30)
[2017-01-23] MEDS ORDERED: HydrALAZINE 25mg tab ORAL PRN (11:45)
[2017-01-23] MEDS: Irbesartan 150mg tablet ORAL SCH (12:29)
[2017-01-23] MEDS ORDERED: KCl 10% 20 mEq/15ml liquid ORAL ONE (12:30)
--- NOTE | 2017-01-23 12:34 | Pulmonology Progress Note ---
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 - Removal of penile prosthesis, urethral reconstruction , closure of the urethral perforation and erosion and Foss catheter placement ST HTN urgency erectile dysfunction Hx of CVA e/lyte imbalance ( hypo K, hypo Mg) PLAN OF CARE O2 HHN prn abx ID follows still significant leukocytosis ST resolved, likely due to hypovolemia BP management with multiple regimen of anti HTN - BB, ARB and CCB, Hydralazine prn ( dose incerased) cardio follows continue statin additional Mg as per cardio order bowel regimen pain management, case discussed and evaluated by supervising physician Subjective Allergies: Coded Allergies: No Known Allergies (Unverified , 01/18/17) Subjective still with significant leukocytosis -17.2, afebrile pain better controlled after increased dose of analgesic BP uncontrolled Mg-1.7 and K-3.5 Objective Last 24 Hour Vital Signs Date Time Temp Pulse Resp B/P Pulse Ox O2 Delivery O2 Flow Rate FiO2 01/23/17 09:22 82 191/81 01/23/17 09:21 82 191/81 01/23/17 08:00 98.1 82 20 191/81 98 Room Air 01/23/17 06:41 72 01/23/17 06:29 97.0 84 19 140/71 100 Nasal Cannula 2.0 01/23/17 04:00 98.1 84 20 156/71 100 Nasal Cannula 2.0 01/23/17 00:00 96.6 85 20 151/78 98 Nasal Cannula 2.0 01/22/17 23:37 97 01/22/17 20:21 82 161/86 01/22/17 20:00 99.7 82 20 161/86 100 Nasal Cannula 2.0 01/22/17 19:12 77 01/22/17 16:24 97.2 84 18 113/62 97 Nasal Cannula 2.0 01/22/17 16:00 88 Intake and Output 01/22/17 01/23/17 19:00 07:00 Intake Total 1512.5 ml 1010.0 ml Output Total 2500 ml 1500 ml Balance -987.5 ml -490.0 ml Intake Oral 120 ml 200 ml IV Total 1392.5 ml 810.0 ml Output Urine Total 2500 ml 1500 ml # Bowel Movements 2 1 Objective General Appearance: no acute distress, other - awake, responsive, expressive aphasia HEENT: normocephalic, atraumatic, anicteric, mucous membranes moist Respiratory/Chest: lungs clear, no respiratory distress, no accessory muscle use Cardiovascular: normal peripheral pulses, normal rate, no JVD Abdomen: normal bowel sounds, soft, non tender, non distended Genitourinary: other - penile and scrotal edema Extremities: no edema Neurologic/Psychiatric: alert, responsive Musculoskeletal: normal muscle bulk Laboratory Tests 01/23/17 05:25: White Blood Count 17.2H, Red Blood Count 4.70, Hemoglobin 14.8, Hematocrit 43.2 , Mean Corpuscular Volume 92, Mean Corpuscular Hemoglobin 31.6H, Mean Corpuscular Hemoglobin Concent 34.3, Red Cell Distribution Width 11.6, Platelet Count 266, Mean Platelet Volume 7.6, Neutrophils (%) (Auto) 84.5H, Lymphocytes ( %) (Auto) 8.8L, Monocytes (%) (Auto) 6.1, Eosinophils (%) (Auto) 0.4, Basophils (%) (Auto) 0.2, Sodium Level 130L, Potassium Level 3.5, Chloride Level 96L, Carbon Dioxide Level 24, Anion Gap 10, Blood Urea Nitrogen 9, Creatinine 0.6L, Estimat Glomerular Filtration Rate > 60, Glucose Level 127H, Calcium Level 8.0L , Magnesium Level 1.7 Current Medications Medications (Trade) Dose Ordered Sig/Twin Route PRN Reason Start Time Stop Time Status Last Admin Dose Admin Acetaminophen (Tylenol) 650 mg Q4H PRN ORAL FEVER>100.6 01/23/17 07:00 02/22/17 06:59 Acetaminophen (Tylenol) 650 mg Q6H PRN ORAL Mild Pain (Pain Scale 1-3) 01/23/17 11:00 02/22/17 10:59 Amlodipine Besylate (Norvasc) 10 mg DAILY ORAL 01/23/17 09:00 02/22/17 08:59 01/23/17 09:22 Atorvastatin Calcium (Lipitor) 80 mg BEDTIME ORAL 01/23/17 21:00 02/22/17 20:59 Carvedilol (Coreg) 25 mg EVERY 12 HOURS ORAL 01/23/17 09:00 02/22/17 08:59 01/23/17 09:21 Clonazepam (KlonoPIN) 0.5 mg DAILY PRN ORAL For Anxiety 01/23/17 09:00 01/30/17 08:59 Clonidine HCl (Catapres) 0.1 mg Q4H PRN ORAL SBP >160 mm Hg 01/23/17 08:30 02/22/17 08:29 Docusate Sodium (Colace) 100 mg TWICE A DAY ORAL 01/23/17 09:00 02/22/17 08:59 01/23/17 09:19 Fluconazole (Diflucan) 200 mg DAILY ORAL 01/23/17 09:00 01/30/17 08:59 01/23/17 09:22 Hydralazine HCl (Apresoline) 25 mg EVERY 4 HOURS PRN ORAL SBP above 150 01/23/17 11:45 02/22/17 11:44 Hydromorphone HCl (Dilaudid) 2 mg Q3H PRN IVP Breakthrough Pain 01/23/17 08:30 01/30/17 08:29 01/23/17 08:53 Irbesartan 150 mg 150 mg DAILY ORAL 01/23/17 11:00 02/22/17 10:59 Ketorolac Tromethamine (Toradol 30mg) 15 mg Q6H PRN IV Moderate Pain (Pain Scale 4-6) 01/23/17 11:30 01/25/17 11:29 Magnesium Sulfate (Magnesium Sulfate 1gm/100ml) 100 ml @ 100 mls/hr ONCE ONCE IVPB 01/23/17 13:00 01/23/17 13:59 Ondansetron HCl (Zofran) 4 mg Q6H PRN IVP Nausea & Vomiting 01/23/17 11:30 02/22/17 11:29 Piperacillin Sod/ Tazobactam Sod 3.375 gm/Sodium Chloride 110 ml @ 27.5 mls/hr Q8H IVPB 01/23/17 08:00 01/30/17 07:59 01/23/17 09:21 Potassium Chloride (KCl 10% 20 mEq oral solution) 20 meq ONCE ONCE ORAL 01/23/17 12:30 01/23/17 12:31 Sodium Chloride 1,000 ml @ 75 mls/hr [id number] IV 01/23/17 13:00 02/22/17 12:59 Temazepam (Restoril) 7.5 mg QHS PRN ORAL Insomnia 01/23/17 21:00 01/30/17 20:59 Vancomycin HCl (Vanco rx to dose) 1 ea DAILY PRN MISC Per rx protocol 01/23/17 09:00 02/22/17 08:59 Vancomycin HCl/ Dextrose (Vancomycin/D5W) 275 ml @ 183.708 mls/hr Q12HR@0230,1430 IVPB 01/23/17 14:30 01/28/17 14:29 Rob (Oscar)Kari NP Jan 23, 2017 12:34
--- NOTE | 2017-01-23 14:16 | Progress Note ---
DATE: 01/23/2017 CARDIOLOGY PROGRESS NOTE SUBJECTIVE: The patient without shortness of breath or chest pain. No nausea or vomiting. He is on multiple antibiotics. Status post removal of infected penile prosthesis. OBJECTIVE: VITAL SIGNS: Blood pressure 140/71 to 191/81, heart rate 82, respiratory rate 20, and afebrile. NECK: Supple. LUNGS: Clear. CARDIAC: Regular rhythm and rate. Normal S1 and S2 with a fourth heart sound. ABDOMEN: Soft. Surgical site with dressing in place. EXTREMITIES: No edema. LABORATORY DATA: White count 17 and hemoglobin 14.8. Sodium 130, potassium 3.5, bicarbonate 24, BUN 9, and creatinine 0.6. Magnesium 1.7. IMPRESSION: 1. Dilutional hyponatremia. 2. Borderline hypokalemia. 3. Sepsis due to infected prosthesis, now removed. 4. Accelerated hypertension/hypertensive urgency. 5. Postoperative pain aggravating above. PLAN: Change intravenous fluids to isotonic solution with potassium, empiric magnesium by IV route, advance antihypertensive, and antimicrobials per Infectious Disease road consultant. Pain Dilaudid IV for breakthrough symptoms. Roni Jose M.D. DR: ANNY JOB#: [id number] CC:
[2017-01-23] MEDS: Vancomycin 750 MG in D5W 275 ML IVPB SCH (15:38)
[2017-01-23] MEDS: Atorvastatin 80mg tab ORAL SCH (20:49)
[2017-01-23] MEDS: NS w/KCl 20mEq 1,000 ML IV SCH (20:52)
[2017-01-24] VITALS: BP 152/70
[2017-01-24] MEDS: HYDROmorphone 1mg/ml Carpuject IVP PRN ×6 (01:38→20:00)
[2017-01-24] MEDS: NS w/KCl 20mEq 1,000 ML IV SCH ×2 (02:20→15:40)
[2017-01-24] MEDS: Vancomycin 750 MG in D5W 275 ML IVPB SCH ×2 (03:28→14:30)
[2017-01-24 04:00] VITALS: BP 157/73
[2017-01-24 08:00] VITALS: BP 131/67
[2017-01-24] MEDS: Piperacillin/Tazobactam 3.375 GM in NS 110 ML IVPB SCH ×2 (08:00→16:28)
[2017-01-24 08:50] LABS: BASOPHILS % (AUTO) 0.3 % (0.0-2.0); LYMPHOCYTES % (AUTO) 10.3 % (20.0-45.0); MEAN CORPUSCULAR HEMOGLOBIN 31.7 PG (27.0-31.0); MEAN CORPUSCULAR HGB CONC 34.3 G/DL (32.0-36.0); MEAN CORPUSCULAR VOLUME 93 FL (80-99); MEAN PLATELET VOLUME 7.4 FL (6.5-10.1); MONOCYTES % (AUTO) 4.7 % (1.0-10.0); NEUTROPHILS % (AUTO) 83.6 % (45.0-75.0); PLATELET COUNT 254 K/UL (150-450); RED BLOOD COUNT 4.47 M/UL (4.70-6.10); RED CELL DISTRIBUTION WIDTH 11.8 % (11.6-14.8); WHITE BLOOD COUNT 13.1 K/UL (4.8-10.8)
[2017-01-24 08:57] LABS: ALANINE AMINOTRANSFERASE 30 U/L (3-41); ALBUMIN/GLOBULIN RATIO 1.1 (1.0-2.7); ANION GAP 8 (5-15); ASPARTATE AMINO TRANSFERASE 28 U/L (5-40); CALCIUM 8.2 mg/dL (8.6-10.2); CARBON DIOXIDE 28 mEQ/L (20-30); CHLORIDE 97 mEQ/L (98-107); CREATININE 0.7 mg/dL (0.7-1.2); GLOMERULAR FILTRATION RATE > 60 mL/min (>60); HEMOLYSIS 8; POTASSIUM 3.9 mEQ/L (3.4-4.9); SODIUM 133 mEQ/L (135-145); TOTAL PROTEIN 5.3 g/dL (6.6-8.7)
[2017-01-24] MEDS: Irbesartan 150mg tablet ORAL SCH (09:00)
[2017-01-24] MEDS: Carvedilol 25mg Tab ORAL SCH ×2 (09:00→20:36)
[2017-01-24] MEDS: Fluconazole 100mg tab ORAL SCH (09:00)
[2017-01-24] MEDS: Docusate 100mg cap ORAL SCH ×2 (09:00→18:00)
[2017-01-24] MEDS ORDERED: Tubing IV Secondary IV ONE (09:10)
[2017-01-24] MEDS ORDERED: NS 275ml ONE (09:10)
[2017-01-24 11:57] VITALS: BP 139/68
--- NOTE | 2017-01-24 13:12 | Pulmonology Progress Note ---
Assessment/Plan Problems: (1) Infected penile implant (2) HTN (hypertension) (3) Erectile dysfunction (4) CVA (cerebral vascular accident) Assessment/Plan bp control IV antibiotics check wbc wbc decreasing continue the patient on vancomycin and Zosyn d# , Subjective ROS Limited/Unobtainable: No Interval Events: episodes of panic attach Allergies: Coded Allergies: No Known Allergies (Unverified , 01/18/17) Objective Last 24 Hour Vital Signs Date Time Temp Pulse Resp B/P Pulse Ox O2 Delivery O2 Flow Rate FiO2 01/24/17 11:57 97.6 74 20 139/68 97 Room Air 01/24/17 09:00 136/68 01/24/17 09:00 100 136/68 01/24/17 09:00 100 136/68 01/24/17 08:00 97.1 76 18 131/67 100 Nasal Cannula 2.0 01/24/17 06:04 98.6 01/24/17 04:00 98.6 69 18 157/73 96 Room Air 01/24/17 00:00 98.1 77 18 152/70 100 Nasal Cannula 3.0 01/23/17 20:49 66 142/66 01/23/17 20:00 98.4 80 20 128/62 98 Nasal Cannula 3.0 01/23/17 19:47 Nasal Cannula 2.0 01/23/17 19:46 97 Nasal Cannula 2.0 01/23/17 16:34 97.2 66 20 142/66 98 Nasal Cannula 2.0 01/23/17 14:28 97.9 76 20 133/85 100 Room Air Intake and Output 01/23/17 01/24/17 19:00 07:00 Intake Total 1060.000 ml Output Total 1400 ml 2625 ml Balance -1400 ml -1565.000 ml IV Total 1060.000 ml Output Urine Total 1400 ml 2625 ml # Bowel Movements 1 General Appearance: WD/WN HEENT: normocephalic, atraumatic Cardiovascular: normal peripheral pulses, normal rate Abdomen: normal bowel sounds, soft, non tender Genitourinary: normal external genitalia Extremities: no cyanosis Skin: no rash 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 Laboratory Tests 01/24/17 07:45: White Blood Count 13.1H, Red Blood Count 4.47L, Hemoglobin 14.2, Hematocrit 41.4L, Mean Corpuscular Volume 93, Mean Corpuscular Hemoglobin 31.7H, Mean Corpuscular Hemoglobin Concent 34.3, Red Cell Distribution Width 11.8, Platelet Count 254, Mean Platelet Volume 7.4, Neutrophils (%) (Auto) 83.6H, Lymphocytes ( %) (Auto) 10.3L, Monocytes (%) (Auto) 4.7, Eosinophils (%) (Auto) 1.0, Basophils (%) (Auto) 0.3, Sodium Level 133L, Potassium Level 3.9, Chloride Level 97L, Carbon Dioxide Level 28, Anion Gap 8, Blood Urea Nitrogen 8, Creatinine 0.7, Estimat Glomerular Filtration Rate > 60, Glucose Level 126H, Calcium Level 8.2L, Magnesium Level 1.8, Total Bilirubin 0.3, Aspartate Amino Transf (AST/SGOT) 28, Alanine Aminotransferase (ALT/SGPT) 30, Alkaline Phosphatase 65, Total Protein 5.3L, Albumin 2.8L, Globulin 2.5, Albumin/ Globulin Ratio 1.1 Current Medications Medications (Trade) Dose Ordered Sig/Twin Route PRN Reason Start Time Stop Time Status Last Admin Dose Admin Acetaminophen (Tylenol) 650 mg Q4H PRN ORAL FEVER>100.6 01/23/17 07:00 02/22/17 06:59 Acetaminophen (Tylenol) 650 mg Q6H PRN ORAL Mild Pain (Pain Scale 1-3) 01/23/17 11:00 02/22/17 10:59 Amlodipine Besylate (Norvasc) 10 mg DAILY ORAL 01/23/17 09:00 02/22/17 08:59 01/24/17 09:00 Atorvastatin Calcium (Lipitor) 80 mg BEDTIME ORAL 01/23/17 21:00 02/22/17 20:59 01/23/17 20:49 Carvedilol (Coreg) 25 mg EVERY 12 HOURS ORAL 01/23/17 09:00 02/22/17 08:59 01/24/17 09:00 Clonazepam (KlonoPIN) 0.5 mg EVERY 4 HOURS PRN ORAL For Anxiety 01/24/17 13:15 01/31/17 13:14 UNV Clonidine HCl (Catapres) 0.1 mg Q4H PRN ORAL SBP >160 mm Hg 01/23/17 08:30 02/22/17 08:29 Docusate Sodium (Colace) 100 mg TWICE A DAY ORAL 01/23/17 09:00 02/22/17 08:59 01/24/17 09:00 Fluconazole (Diflucan) 200 mg DAILY ORAL 01/23/17 09:00 01/30/17 08:59 01/24/17 09:00 Hydralazine HCl (Apresoline) 25 mg EVERY 4 HOURS PRN ORAL SBP above 150 01/23/17 11:45 02/22/17 11:44 Hydromorphone HCl (Dilaudid) 3 mg Q3H PRN IVP Breakthrough Pain 01/23/17 14:30 01/30/17 14:29 01/24/17 12:23 Irbesartan 150 mg 150 mg DAILY ORAL 01/23/17 11:00 02/22/17 10:59 01/24/17 09:00 Ketorolac Tromethamine (Toradol 30mg) 15 mg Q6H PRN IV Moderate Pain (Pain Scale 4-6) 01/23/17 11:30 01/25/17 11:29 Ondansetron HCl (Zofran) 4 mg Q6H PRN IVP Nausea & Vomiting 01/23/17 11:30 02/22/17 11:29 01/23/17 15:46 Piperacillin Sod/ Tazobactam Sod 3.375 gm/Sodium Chloride 110 ml @ 27.5 mls/hr Q8H IVPB 01/23/17 08:00 01/30/17 07:59 01/24/17 08:00 Sodium Chloride (NS w/KCl 20mEq) 1,000 ml @ 75 mls/hr [id number] IV 01/23/17 13:00 02/22/17 12:59 01/23/17 20:52 Temazepam (Restoril) 7.5 mg QHS PRN ORAL Insomnia 01/23/17 21:00 01/30/17 20:59 Vancomycin HCl (Vanco rx to dose) 1 ea DAILY PRN MISC Per rx protocol 01/23/17 09:00 02/22/17 08:59 Vancomycin HCl/ Dextrose (Vancomycin/D5W) 275 ml @ 183.708 mls/hr Q12HR@0230,1430 IVPB 7/2/17 14:30 01/28/17 14:29 01/24/17 03:28 JASPREET LEPE Jan 24, 2017 13:12
[2017-01-24] MEDS ORDERED: ALPRAZolam 0.5mg tab ORAL PRN (13:15)
[2017-01-24] MEDS: clonazePAM 0.5mg tab ORAL PRN (15:49)
[2017-01-24 16:14] VITALS: BP 134/79
--- NOTE | 2017-01-24 19:42 | Infectious Diseases Prog Note ---
Assessment/Plan Assessment/Plan A: The patient is a 66-year-old male with Infected penile prosthesis, status post removal Leucocytosis Weakness HTN. CVA Erectile dysfunction History of GERD PLAN: continue the patient on vancomycin and Zosyn d# 6 / , upon DC will cont pt on clinda 300 tid and Cipro 500 bid to complete the course Monitor CBC. Monitor BNP. Subjective Allergies: Coded Allergies: No Known Allergies (Unverified , 01/18/17) Subjective feeling better Objective Vital Signs Last 24 Hour Vital Signs Date Time Temp Pulse Resp B/P Pulse Ox O2 Delivery O2 Flow Rate FiO2 01/24/17 16:14 98.6 79 20 134/79 98 Nasal Cannula 2.0 01/24/17 11:57 97.6 74 20 139/68 97 Room Air 01/24/17 09:00 136/68 01/24/17 09:00 100 136/68 01/24/17 09:00 100 136/68 01/24/17 08:00 97.1 76 18 131/67 100 Nasal Cannula 2.0 01/24/17 06:04 98.6 01/24/17 04:00 98.6 69 18 157/73 96 Room Air 01/24/17 00:00 98.1 77 18 152/70 100 Nasal Cannula 3.0 01/23/17 20:49 66 142/66 01/23/17 20:00 98.4 80 20 128/62 98 Nasal Cannula 3.0 01/23/17 19:47 Nasal Cannula 2.0 01/23/17 19:46 97 Nasal Cannula 2.0 Height (Feet): 5 Height (Inches): 6.00 Weight (Pounds): 138 HEENT: anicteric Respiratory/Chest: lungs clear Cardiovascular: regular rhythm Abdomen: no organomegaly Laboratory Tests Test 01/24/17 07:45 01/24/17 13:20 White Blood Count 13.1 K/UL (4.8-10.8) H Red Blood Count 4.47 M/UL (4.70-6.10) L Hemoglobin 14.2 G/DL (14.2-18.0) Hematocrit 41.4 % (42.0-52.0) L Mean Corpuscular Volume 93 FL (80-99) Mean Corpuscular Hemoglobin 31.7 PG (27.0-31.0) H Mean Corpuscular Hemoglobin Concent 34.3 G/DL (32.0-36.0) Red Cell Distribution Width 11.8 % (11.6-14.8) Platelet Count 254 K/UL (150-450) Mean Platelet Volume 7.4 FL (6.5-10.1) Neutrophils (%) (Auto) 83.6 % (45.0-75.0) H Lymphocytes (%) (Auto) 10.3 % (20.0-45.0) L Monocytes (%) (Auto) 4.7 % (1.0-10.0) Eosinophils (%) (Auto) 1.0 % (0.0-3.0) Basophils (%) (Auto) 0.3 % (0.0-2.0) Sodium Level 133 mEQ/L (135-145) L Potassium Level 3.9 mEQ/L (3.4-4.9) Chloride Level 97 mEQ/L (98-107) L Carbon Dioxide Level 28 mEQ/L (20-30) Anion Gap 8 (5-15) Blood Urea Nitrogen 8 mg/dL (7-23) Creatinine 0.7 mg/dL (0.7-1.2) Estimat Glomerular Filtration Rate > 60 mL/min (>60) Glucose Level 126 mg/dL (74-106) H Calcium Level 8.2 mg/dL (8.6-10.2) L Magnesium Level 1.8 mg/dL (1.7-2.5) Total Bilirubin 0.3 mg/dL (0.0-1.2) Aspartate Amino Transf (AST/SGOT) 28 U/L (5-40) Alanine Aminotransferase (ALT/SGPT) 30 U/L (3-41) Alkaline Phosphatase 65 U/L (40-129) Total Protein 5.3 g/dL (6.6-8.7) L Albumin 2.8 g/dL (3.5-5.2) L Globulin 2.5 g/dL Albumin/Globulin Ratio 1.1 (1.0-2.7) Vancomycin Level Trough 11.8 ug/mL (5.0-12.0) Current Medications Medications (Trade) Dose Ordered Sig/Twin Route PRN Reason Start Time Stop Time Status Last Admin Dose Admin Acetaminophen (Tylenol) 650 mg Q4H PRN ORAL FEVER>100.6 01/23/17 07:00 02/22/17 06:59 Acetaminophen (Tylenol) 650 mg Q6H PRN ORAL Mild Pain (Pain Scale 1-3) 01/23/17 11:00 02/22/17 10:59 Amlodipine Besylate (Norvasc) 10 mg DAILY ORAL 01/23/17 09:00 02/22/17 08:59 01/24/17 09:00 Atorvastatin Calcium (Lipitor) 80 mg BEDTIME ORAL 01/23/17 21:00 02/22/17 20:59 01/23/17 20:49 Carvedilol (Coreg) 25 mg EVERY 12 HOURS ORAL 01/23/17 09:00 02/22/17 08:59 01/24/17 09:00 Clonazepam (KlonoPIN) 0.5 mg EVERY 4 HOURS PRN ORAL For Anxiety 01/24/17 13:15 01/31/17 13:14 01/24/17 15:49 Clonidine HCl (Catapres) 0.1 mg Q4H PRN ORAL SBP >160 mm Hg 01/23/17 08:30 02/22/17 08:29 Docusate Sodium (Colace) 100 mg TWICE A DAY ORAL 01/23/17 09:00 02/22/17 08:59 01/24/17 09:00 Fluconazole (Diflucan) 200 mg DAILY ORAL 01/23/17 09:00 01/30/17 08:59 01/24/17 09:00 Hydralazine HCl (Apresoline) 25 mg EVERY 4 HOURS PRN ORAL SBP above 150 01/23/17 11:45 02/22/17 11:44 Hydromorphone HCl (Dilaudid) 3 mg Q3H PRN IVP Breakthrough Pain 01/23/17 14:30 01/30/17 14:29 01/24/17 16:21 Irbesartan 150 mg 150 mg DAILY ORAL 01/23/17 11:00 02/22/17 10:59 01/24/17 09:00 Ketorolac Tromethamine (Toradol 30mg) 15 mg Q6H PRN IV Moderate Pain (Pain Scale 4-6) 01/23/17 11:30 01/25/17 11:29 Ondansetron HCl (Zofran) 4 mg Q6H PRN IVP Nausea & Vomiting 01/23/17 11:30 02/22/17 11:29 01/23/17 15:46 Piperacillin Sod/ Tazobactam Sod 3.375 gm/Sodium Chloride 110 ml @ 27.5 mls/hr Q8H IVPB 01/23/17 08:00 01/30/17 07:59 01/24/17 16:28 Sodium Chloride (NS w/KCl 20mEq) 1,000 ml @ 75 mls/hr [id number] IV 01/23/17 13:00 02/22/17 12:59 01/24/17 15:40 Temazepam (Restoril) 7.5 mg QHS PRN ORAL Insomnia 01/23/17 21:00 01/30/17 20:59 Vancomycin HCl (Vanco rx to dose) 1 ea DAILY PRN MISC Per rx protocol 01/23/17 09:00 02/22/17 08:59 Vancomycin HCl/ Dextrose (Vancomycin/D5W) 275 ml @ 183.708 mls/hr Q12HR@0230,1430 IVPB 01/23/17 14:30 01/28/17 14:29 01/24/17 14:30 DMITRIY NOBLE M.D. Jan 24, 2017 19:42
[2017-01-24 20:00] VITALS: BP 120/64
[2017-01-24] MEDS: Atorvastatin 80mg tab ORAL SCH (20:37)
[2017-01-25] VITALS: BP 159/81
[2017-01-25] MEDS: Piperacillin/Tazobactam 3.375 GM in NS 110 ML IVPB SCH ×4 (00:05→23:08)
[2017-01-25] MEDS: HYDROmorphone 1mg/ml Carpuject IVP PRN ×6 (01:23→21:11)
[2017-01-25] MEDS: Vancomycin 750 MG in D5W 275 ML IVPB SCH ×2 (03:42→03:48)
[2017-01-25 04:00] VITALS: BP 135/73
[2017-01-25] MEDS: NS w/KCl 20mEq 1,000 ML IV SCH ×2 (05:02→18:13)
[2017-01-25 07:23] LABS: BASOPHILS % (AUTO) 0.7 % (0.0-2.0); EOSINOPHILS % (AUTO) 1.9 % (0.0-3.0); MEAN CORPUSCULAR HEMOGLOBIN 31.9 PG (27.0-31.0); MEAN CORPUSCULAR HGB CONC 34.5 G/DL (32.0-36.0); MEAN CORPUSCULAR VOLUME 93 FL (80-99); MEAN PLATELET VOLUME 7.3 FL (6.5-10.1); MONOCYTES % (AUTO) 6.6 % (1.0-10.0); NEUTROPHILS % (AUTO) 77.8 % (45.0-75.0); PLATELET COUNT 254 K/UL (150-450); RED BLOOD COUNT 4.78 M/UL (4.70-6.10); RED CELL DISTRIBUTION WIDTH 12.1 % (11.6-14.8); WHITE BLOOD COUNT 12.1 K/UL (4.8-10.8)
[2017-01-25 07:44] LABS: ALANINE AMINOTRANSFERASE 31 U/L (3-41); ALBUMIN/GLOBULIN RATIO 1.1 (1.0-2.7); ANION GAP 9 (5-15); ASPARTATE AMINO TRANSFERASE 25 U/L (5-40); CALCIUM 8.6 mg/dL (8.6-10.2); CARBON DIOXIDE 27 mEQ/L (20-30); CHLORIDE 98 mEQ/L (98-107); CREATININE 0.7 mg/dL (0.7-1.2); GLOMERULAR FILTRATION RATE > 60 mL/min (>60); HEMOLYSIS 6; MAGNESIUM 1.7 mg/dL (1.7-2.5); PHOSPHORUS 2.4 mg/dL (2.5-4.8); POTASSIUM 3.9 mEQ/L (3.4-4.9); SODIUM 134 mEQ/L (135-145); TOTAL PROTEIN 5.6 g/dL (6.6-8.7)
[2017-01-25] MEDS: Docusate 100mg cap ORAL SCH ×2 (08:14→18:09)
[2017-01-25] MEDS: Fluconazole 100mg tab ORAL SCH (08:15)
[2017-01-25] MEDS: clonazePAM 0.5mg tab ORAL PRN ×2 (08:18→19:22)
[2017-01-25] MEDS: Carvedilol 25mg Tab ORAL SCH ×2 (08:19→20:58)
[2017-01-25] MEDS: Irbesartan 150mg tablet ORAL SCH (08:23)
[2017-01-25 08:38] VITALS: BP 130/74
--- NOTE | 2017-01-25 11:46 | Infectious Diseases Prog Note ---
Assessment/Plan Assessment/Plan A: The patient is a 66-year-old male with Infected penile prosthesis, ( infected ) status post removal ( no Cx was sent ) Leucocytosis improving Weakness improving HTN. CVA Erectile dysfunction History of GERD PLAN: continue the patient on vancomycin and Zosyn d# 7 / 10 , upon DC will cont pt on clinda 300 tid and Cipro 500 bid to complete the course Monitor CBC. Monitor BNP. Subjective Constitutional: Denies: anorexia, chills, drenching sweats, fatigue, fever, no symptoms, other Allergies: Coded Allergies: No Known Allergies (Unverified , 01/18/17) Subjective comfortable Objective Vital Signs Last 24 Hour Vital Signs Date Time Temp Pulse Resp B/P Pulse Ox O2 Delivery O2 Flow Rate FiO2 01/25/17 08:38 98.1 81 20 130/74 96 Room Air 01/25/17 08:23 130/74 01/25/17 08:19 81 130/74 01/25/17 08:19 81 130/74 01/25/17 06:49 98.3 01/25/17 04:00 98.3 78 18 135/73 96 Room Air 01/25/17 00:00 98.1 78 18 159/81 94 Room Air 01/24/17 20:36 84 120/64 01/24/17 20:07 Room Air 01/24/17 20:06 97 Room Air 01/24/17 20:00 98.7 84 20 120/64 96 Room Air 01/24/17 16:14 98.6 79 20 134/79 98 Nasal Cannula 2.0 01/24/17 11:57 97.6 74 20 139/68 97 Room Air Height (Feet): 5 Height (Inches): 6.00 Weight (Pounds): 138 HEENT: mucous membranes moist Respiratory/Chest: no accessory muscle use Cardiovascular: regular rhythm Abdomen: non distended Laboratory Tests Test 01/24/17 13:20 01/25/17 07:00 Vancomycin Level Trough 11.8 ug/mL (5.0-12.0) White Blood Count 12.1 K/UL (4.8-10.8) H Red Blood Count 4.78 M/UL (4.70-6.10) Hemoglobin 15.3 G/DL (14.2-18.0) Hematocrit 44.3 % (42.0-52.0) Mean Corpuscular Volume 93 FL (80-99) Mean Corpuscular Hemoglobin 31.9 PG (27.0-31.0) H Mean Corpuscular Hemoglobin Concent 34.5 G/DL (32.0-36.0) Red Cell Distribution Width 12.1 % (11.6-14.8) Platelet Count 254 K/UL (150-450) Mean Platelet Volume 7.3 FL (6.5-10.1) Neutrophils (%) (Auto) 77.8 % (45.0-75.0) H Lymphocytes (%) (Auto) 13.0 % (20.0-45.0) L Monocytes (%) (Auto) 6.6 % (1.0-10.0) Eosinophils (%) (Auto) 1.9 % (0.0-3.0) Basophils (%) (Auto) 0.7 % (0.0-2.0) Sodium Level 134 mEQ/L (135-145) L Potassium Level 3.9 mEQ/L (3.4-4.9) Chloride Level 98 mEQ/L (98-107) Carbon Dioxide Level 27 mEQ/L (20-30) Anion Gap 9 (5-15) Blood Urea Nitrogen 11 mg/dL (7-23) Creatinine 0.7 mg/dL (0.7-1.2) Estimat Glomerular Filtration Rate > 60 mL/min (>60) Glucose Level 131 mg/dL (74-106) H Calcium Level 8.6 mg/dL (8.6-10.2) Phosphorus Level 2.4 mg/dL (2.5-4.8) L Magnesium Level 1.7 mg/dL (1.7-2.5) Total Bilirubin 0.4 mg/dL (0.0-1.2) Aspartate Amino Transf (AST/SGOT) 25 U/L (5-40) Alanine Aminotransferase (ALT/SGPT) 31 U/L (3-41) Alkaline Phosphatase 71 U/L (40-129) Total Protein 5.6 g/dL (6.6-8.7) L Albumin 3.0 g/dL (3.5-5.2) L Globulin 2.6 g/dL Albumin/Globulin Ratio 1.1 (1.0-2.7) Current Medications Medications (Trade) Dose Ordered Sig/Twin Route PRN Reason Start Time Stop Time Status Last Admin Dose Admin Acetaminophen (Tylenol) 650 mg Q4H PRN ORAL FEVER>100.6 01/23/17 07:00 02/22/17 06:59 Acetaminophen (Tylenol) 650 mg Q6H PRN ORAL Mild Pain (Pain Scale 1-3) 01/23/17 11:00 02/22/17 10:59 Amlodipine Besylate (Norvasc) 10 mg DAILY ORAL 01/23/17 09:00 02/22/17 08:59 01/25/17 08:19 Atorvastatin Calcium (Lipitor) 80 mg BEDTIME ORAL 01/23/17 21:00 02/22/17 20:59 01/24/17 20:37 Carvedilol (Coreg) 25 mg EVERY 12 HOURS ORAL 01/23/17 09:00 02/22/17 08:59 01/25/17 08:19 Clonazepam (KlonoPIN) 0.5 mg EVERY 4 HOURS PRN ORAL For Anxiety 01/24/17 13:15 01/31/17 13:14 01/25/17 08:18 Clonidine HCl (Catapres) 0.1 mg Q4H PRN ORAL SBP >160 mm Hg 01/23/17 08:30 02/22/17 08:29 Docusate Sodium (Colace) 100 mg TWICE A DAY ORAL 01/23/17 09:00 02/22/17 08:59 01/25/17 08:14 Fluconazole (Diflucan) 200 mg DAILY ORAL 01/23/17 09:00 01/30/17 08:59 01/25/17 08:15 Hydralazine HCl (Apresoline) 25 mg EVERY 4 HOURS PRN ORAL SBP above 150 01/23/17 11:45 02/22/17 11:44 Hydromorphone HCl (Dilaudid) 3 mg Q3H PRN IVP Breakthrough Pain 01/23/17 14:30 01/30/17 14:29 01/25/17 09:22 Irbesartan 150 mg 150 mg DAILY ORAL 01/23/17 11:00 02/22/17 10:59 01/25/17 08:23 Ondansetron HCl (Zofran) 4 mg Q6H PRN IVP Nausea & Vomiting 01/23/17 11:30 02/22/17 11:29 01/23/17 15:46 Piperacillin Sod/ Tazobactam Sod 3.375 gm/Sodium Chloride 110 ml @ 27.5 mls/hr Q8H IVPB 01/23/17 08:00 01/30/17 07:59 01/25/17 08:12 Sodium Chloride (NS w/KCl 20mEq) 1,000 ml @ 75 mls/hr [id number] IV 01/23/17 13:00 02/22/17 12:59 01/25/17 05:02 Temazepam (Restoril) 7.5 mg QHS PRN ORAL Insomnia 01/23/17 21:00 01/30/17 20:59 01/24/17 22:12 Vancomycin HCl (Vanco rx to dose) 1 ea DAILY PRN MISC Per rx protocol 01/23/17 09:00 02/22/17 08:59 Vancomycin HCl/ Dextrose (Vancomycin/D5W) 275 ml @ 183.708 mls/hr Q12HR@0230,1430 IVPB 01/23/17 14:30 01/28/17 14:29 01/25/17 03:48 DMITRIY NOBLE M.D. Jan 25, 2017 11:46
[2017-01-25 11:55] VITALS: BP 121/69
[2017-01-25 15:23] VITALS: BP 129/81
[2017-01-25 20:00] VITALS: BP 161/66
[2017-01-25] MEDS: Atorvastatin 80mg tab ORAL SCH (20:58)
--- NOTE | 2017-01-25 21:45 | Progress Note ---
CARDIOLOGY PROGRESS NOTE DATE: 01/24/2017 SUBJECTIVE: The patient is with controlled pain. He has anxiety. He is on antibiotics. OBJECTIVE: VITAL SIGNS: Blood pressure 139/68, pulse 74, and respiratory rate 20. NECK: Supple. LUNGS: Clear. CARDIAC: Regular rhythm and rate. Normal S1, S2 with no murmur. ABDOMEN: Soft. Urologic site with dressing in place. EXTREMITIES: With no calf tenderness or edema. LABORATORY DATA: White count 13.1, hemoglobin 14.2. Sodium 133, potassium 3.9, bicarbonate 28, BUN 8, and creatinine 0.7. Magnesium 1.8. Albumin 2.8. IMPRESSION: 1. Sepsis. 2. Status post removal of infected penile prosthesis. 3. Hypovolemia and dehydration, corrected. 4. Hypomagnesemia, corrected. 5. Hypokalemia, corrected. 6. Hyponatremia, improved. 7. Moderate protein-calorie malnutrition. 8. Postoperative anemia. 9. Persistent leukocytosis. 10. Acute on chronic diastolic congestive heart failure, compensated. PLAN: 1. Antibiotics. 2. Pain control. 3. Anxiolytics. 4. Monitor electrolytes, replace as needed. 5. Titrate antihypertensive medications based on clinical parameters. 6. Current medications reviewed. Roni Jose M.D. DR: LISA JOB#: [id number] CC:
--- NOTE | 2017-01-25 22:00 | Progress Note ---
DATE: 01/25/2017 CARDIOLOGY PROGRESS NOTE SUBJECTIVE: Condition unchanged, on antibiotics. No shortness of breath. OBJECTIVE: VITAL SIGNS: Blood pressure parameters stable 130/74, pulse 81, and respiratory rate 20. LUNGS: Clear. CARDIAC: Regular. ABDOMEN: Soft. No edema. IMPRESSION: 1. Stable from cardiovascular standpoint. No signs of acute congestive heart failure. 2. Hypertension, controlled. We will follow and adjust cardiovascular regimen as needed. Roni Jose M.D. DR: Shanelle JOB#: [id number] CC:
[2017-01-26] VITALS: BP 143/76
[2017-01-26] MEDS: HYDROmorphone 1mg/ml Carpuject IVP PRN ×7 (00:11→22:25)
[2017-01-26] MEDS: clonazePAM 0.5mg tab ORAL PRN ×2 (01:58→21:37)
[2017-01-26] MEDS: Vancomycin 750 MG in D5W 275 ML IVPB SCH ×2 (02:08→13:55)
[2017-01-26 06:45] VITALS: BP 159/67
[2017-01-26] MEDS: NS w/KCl 20mEq 1,000 ML IV SCH ×2 (07:41→21:00)
[2017-01-26] MEDS: Piperacillin/Tazobactam 3.375 GM in NS 110 ML IVPB SCH ×2 (07:42→15:51)
[2017-01-26 08:00] VITALS: BP 142/73
[2017-01-26] MEDS: Fluconazole 100mg tab ORAL SCH (08:14)
[2017-01-26] MEDS: Carvedilol 25mg Tab ORAL SCH ×2 (08:14→21:37)
[2017-01-26] MEDS: Irbesartan 150mg tablet ORAL SCH (08:14)
[2017-01-26] MEDS: Docusate 100mg cap ORAL SCH ×2 (08:23→17:43)
[2017-01-26 12:00] VITALS: BP 145/66
[2017-01-26 16:00] VITALS: BP 129/59
--- NOTE | 2017-01-26 17:18 | Pulmonology Progress Note ---
Assessment/Plan Problems: (1) Infected penile implant (2) HTN (hypertension) (3) Erectile dysfunction (4) CVA (cerebral vascular accident) Assessment/Plan bp control IV antibiotics check wbc wbc decreasing, still high continue ABx as per ID suggestions potential dc home in am. Subjective ROS Limited/Unobtainable: No Constitutional: Reports: no symptoms HEENT: Repors: no symptoms Respiratory: Reports: no symptoms Allergies: Coded Allergies: No Known Allergies (Unverified , 01/18/17) Objective Last 24 Hour Vital Signs Date Time Temp Pulse Resp B/P Pulse Ox O2 Delivery O2 Flow Rate FiO2 01/26/17 16:00 97.2 80 18 129/59 96 Room Air 01/26/17 12:00 98.1 90 20 145/66 94 Room Air 01/26/17 08:15 85 142/73 01/26/17 08:14 142/73 01/26/17 08:14 85 142/73 01/26/17 08:00 97.4 85 20 142/73 93 Room Air 01/26/17 06:45 97.9 63 18 159/67 95 Room Air 01/26/17 00:00 97.9 87 18 143/76 97 Room Air 01/25/17 20:58 79 161/66 01/25/17 20:00 97.7 79 18 161/66 96 Room Air Intake and Output 01/25/17 01/26/17 19:00 07:00 Intake Total 1652.5 ml 1575 ml Output Total 1050 ml 2400 ml Balance 602.5 ml -825 ml Intake Oral 1160 ml 1500 ml IV Total 492.5 ml 75 ml Output Urine Total 1050 ml 2400 ml # Voids 2 # Bowel Movements 2 General Appearance: WD/WN HEENT: normocephalic, atraumatic Respiratory/Chest: chest wall non-tender, lungs clear Cardiovascular: normal peripheral pulses, normal rate Abdomen: normal bowel sounds, soft, non tender Genitourinary: normal external genitalia Extremities: no cyanosis 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 Lymphatic: no neck adenopathy Current Medications Medications (Trade) Dose Ordered Sig/Twin Route PRN Reason Start Time Stop Time Status Last Admin Dose Admin Acetaminophen (Tylenol) 650 mg Q4H PRN ORAL FEVER>100.6 01/23/17 07:00 02/22/17 06:59 Acetaminophen (Tylenol) 650 mg Q6H PRN ORAL Mild Pain (Pain Scale 1-3) 01/23/17 11:00 02/22/17 10:59 Amlodipine Besylate (Norvasc) 10 mg DAILY ORAL 01/23/17 09:00 02/22/17 08:59 01/26/17 08:15 Atorvastatin Calcium (Lipitor) 80 mg BEDTIME ORAL 01/23/17 21:00 02/22/17 20:59 01/25/17 20:58 Carvedilol (Coreg) 25 mg EVERY 12 HOURS ORAL 01/23/17 09:00 02/22/17 08:59 01/26/17 08:14 Clonazepam (KlonoPIN) 0.5 mg EVERY 4 HOURS PRN ORAL For Anxiety 01/24/17 13:15 01/31/17 13:14 01/26/17 01:58 Clonidine HCl (Catapres) 0.1 mg Q4H PRN ORAL SBP >160 mm Hg 01/23/17 08:30 02/22/17 08:29 Docusate Sodium (Colace) 100 mg TWICE A DAY ORAL 01/23/17 09:00 02/22/17 08:59 01/25/17 18:09 Fluconazole (Diflucan) 200 mg DAILY ORAL 01/23/17 09:00 01/30/17 08:59 01/26/17 08:14 Hydralazine HCl (Apresoline) 25 mg EVERY 4 HOURS PRN ORAL SBP above 150 01/23/17 11:45 02/22/17 11:44 Hydromorphone HCl (Dilaudid) 3 mg Q3H PRN IVP Breakthrough Pain 01/23/17 14:30 01/30/17 14:29 01/26/17 15:58 Irbesartan 150 mg 150 mg DAILY ORAL 01/23/17 11:00 02/22/17 10:59 01/26/17 08:14 Ondansetron HCl (Zofran) 4 mg Q6H PRN IVP Nausea & Vomiting 01/23/17 11:30 02/22/17 11:29 01/26/17 07:32 Piperacillin Sod/ Tazobactam Sod 3.375 gm/Sodium Chloride 110 ml @ 27.5 mls/hr Q8H IVPB 01/23/17 08:00 01/30/17 07:59 01/26/17 15:51 Sodium Chloride (NS w/KCl 20mEq) 1,000 ml @ 75 mls/hr [id number] IV 01/23/17 13:00 02/22/17 12:59 01/26/17 07:41 Temazepam (Restoril) 7.5 mg QHS PRN ORAL Insomnia 01/23/17 21:00 01/30/17 20:59 01/25/17 23:09 Vancomycin HCl (Vanco rx to dose) 1 ea DAILY PRN MISC Per rx protocol 01/23/17 09:00 02/22/17 08:59 Vancomycin HCl/ Dextrose (Vancomycin/D5W) 275 ml @ 183.708 mls/hr Q12HR@0230,1430 IVPB 01/23/17 14:30 01/28/17 14:29 01/26/17 13:55 JASPREET LEPE Jan 26, 2017 17:18
--- NOTE | 2017-01-26 17:49 | Infectious Diseases Prog Note ---
Assessment/Plan Assessment/Plan A: The patient is a 66-year-old male with Infected penile prosthesis, ( infected ) status post removal ( no Cx was sent ) Leucocytosis improving Weakness improving HTN. CVA Erectile dysfunction History of GERD PLAN: continue the patient on vancomycin and Zosyn d# 8 / -14 , upon DC will cont pt on clinda 300 tid and Cipro 500 bid to complete the course Monitor CBC. Monitor BNP. possible DC in AM Subjective Constitutional: Denies: anorexia, chills, drenching sweats, fatigue, fever, no symptoms, other Allergies: Coded Allergies: No Known Allergies (Unverified , 01/18/17) Subjective comfortable Objective Vital Signs Last 24 Hour Vital Signs Date Time Temp Pulse Resp B/P Pulse Ox O2 Delivery O2 Flow Rate FiO2 01/26/17 16:00 97.2 80 18 129/59 96 Room Air 01/26/17 12:00 98.1 90 20 145/66 94 Room Air 01/26/17 08:15 85 142/73 01/26/17 08:14 142/73 01/26/17 08:14 85 142/73 01/26/17 08:00 97.4 85 20 142/73 93 Room Air 01/26/17 06:45 97.9 63 18 159/67 95 Room Air 01/26/17 00:00 97.9 87 18 143/76 97 Room Air 01/25/17 20:58 79 161/66 01/25/17 20:00 97.7 79 18 161/66 96 Room Air Height (Feet): 5 Height (Inches): 6.00 Weight (Pounds): 138 HEENT: atraumatic Respiratory/Chest: normal breath sounds Cardiovascular: regularly irregular Abdomen: no mass Current Medications Medications (Trade) Dose Ordered Sig/Twin Route PRN Reason Start Time Stop Time Status Last Admin Dose Admin Acetaminophen (Tylenol) 650 mg Q4H PRN ORAL FEVER>100.6 01/23/17 07:00 02/22/17 06:59 Acetaminophen (Tylenol) 650 mg Q6H PRN ORAL Mild Pain (Pain Scale 1-3) 01/23/17 11:00 02/22/17 10:59 Amlodipine Besylate (Norvasc) 10 mg DAILY ORAL 01/23/17 09:00 02/22/17 08:59 01/26/17 08:15 Atorvastatin Calcium (Lipitor) 80 mg BEDTIME ORAL 01/23/17 21:00 02/22/17 20:59 01/25/17 20:58 Carvedilol (Coreg) 25 mg EVERY 12 HOURS ORAL 01/23/17 09:00 02/22/17 08:59 01/26/17 08:14 Clonazepam (KlonoPIN) 0.5 mg EVERY 4 HOURS PRN ORAL For Anxiety 01/24/17 13:15 01/31/17 13:14 01/26/17 01:58 Clonidine HCl (Catapres) 0.1 mg Q4H PRN ORAL SBP >160 mm Hg 01/23/17 08:30 02/22/17 08:29 Docusate Sodium (Colace) 100 mg TWICE A DAY ORAL 01/23/17 09:00 02/22/17 08:59 01/25/17 18:09 Fluconazole (Diflucan) 200 mg DAILY ORAL 01/23/17 09:00 01/30/17 08:59 01/26/17 08:14 Hydralazine HCl (Apresoline) 25 mg EVERY 4 HOURS PRN ORAL SBP above 150 01/23/17 11:45 02/22/17 11:44 Hydromorphone HCl (Dilaudid) 3 mg Q3H PRN IVP Breakthrough Pain 01/23/17 14:30 01/30/17 14:29 01/26/17 15:58 Irbesartan 150 mg 150 mg DAILY ORAL 01/23/17 11:00 02/22/17 10:59 01/26/17 08:14 Ondansetron HCl (Zofran) 4 mg Q6H PRN IVP Nausea & Vomiting 01/23/17 11:30 02/22/17 11:29 01/26/17 07:32 Piperacillin Sod/ Tazobactam Sod 3.375 gm/Sodium Chloride 110 ml @ 27.5 mls/hr Q8H IVPB 01/23/17 08:00 01/30/17 07:59 01/26/17 15:51 Sodium Chloride (NS w/KCl 20mEq) 1,000 ml @ 75 mls/hr [id number] IV 01/23/17 13:00 02/22/17 12:59 01/26/17 07:41 Temazepam (Restoril) 7.5 mg QHS PRN ORAL Insomnia 01/23/17 21:00 01/30/17 20:59 01/25/17 23:09 Vancomycin HCl (Vanco rx to dose) 1 ea DAILY PRN MISC Per rx protocol 01/23/17 09:00 02/22/17 08:59 Vancomycin HCl/ Dextrose (Vancomycin/D5W) 275 ml @ 183.708 mls/hr Q12HR@0230,1430 IVPB 01/23/17 14:30 01/28/17 14:29 01/26/17 13:55 DMITRIY NOBLE M.D. Jan 26, 2017 17:49
[2017-01-26 20:31] VITALS: BP 145/72
[2017-01-26] MEDS: Atorvastatin 80mg tab ORAL SCH (21:37)
[2017-01-27 00:18] VITALS: BP 120/62
[2017-01-27] MEDS: Piperacillin/Tazobactam 3.375 GM in NS 110 ML IVPB SCH ×2 (00:49→08:50)
--- NOTE | 2017-01-27 02:15 | Progress Note ---
DATE: 01/26/2017 CARDIOLOGY PROGRESS NOTE SUBJECTIVE: The patient is on IV antibiotics. Pain control is improved. Blood pressure control has been tightened and parameters have improved today. OBJECTIVE: VITAL SIGNS: Blood pressure 161/66 last night and presently 129/59, heart rate 80, respiratory rate 18, and afebrile. NECK: Supple. LUNGS: Clear. CARDIAC: Regular. Normal S1 and S2. ABDOMEN: Soft. GENITOURINARY: There is a penile surgical site without bleeding. EXTREMITIES: Without edema. IMPRESSION: 1. Sepsis status post removal of infected penile prosthesis. 2. Hypophosphatemia. 3. Mild to moderate protein-calorie malnutrition. 4. Hypertensive heart disease. 5. Hyponatremia. PLAN: 1. Antibiotics per Infectious Disease design and sales consultant. 2. Continue current cardiovascular regimen. 3. Titrate antihypertensives based on clinical parameters. 4. Protein supplement with phosphorus replacement. 5. Recheck laboratory studies. Roni Jose M.D. DR: ISABEL JOB#: [id number] CC:
[2017-01-27] MEDS: Vancomycin 750 MG in D5W 275 ML IVPB SCH (03:48)
[2017-01-27 04:25] VITALS: BP 122/65
[2017-01-27] MEDS: HYDROmorphone 1mg/ml Carpuject IVP PRN ×4 (05:08→15:21)
[2017-01-27 07:01] LABS: BASOPHILS % (AUTO) 0.4 % (0.0-2.0); EOSINOPHILS % (AUTO) 2.8 % (0.0-3.0); LYMPHOCYTES % (AUTO) 9.8 % (20.0-45.0); MEAN CORPUSCULAR HEMOGLOBIN 31.3 PG (27.0-31.0); MEAN CORPUSCULAR HGB CONC 33.6 G/DL (32.0-36.0); MEAN CORPUSCULAR VOLUME 93 FL (80-99); MEAN PLATELET VOLUME 7.2 FL (6.5-10.1); MONOCYTES % (AUTO) 7.1 % (1.0-10.0); NEUTROPHILS % (AUTO) 79.9 % (45.0-75.0); PLATELET COUNT 270 K/UL (150-450); RED BLOOD COUNT 4.66 M/UL (4.70-6.10); WHITE BLOOD COUNT 14.8 K/UL (4.8-10.8)
[2017-01-27 07:23] LABS: ALANINE AMINOTRANSFERASE 32 U/L (3-41); ALBUMIN/GLOBULIN RATIO 1.1 (1.0-2.7); ANION GAP 11 (5-15); ASPARTATE AMINO TRANSFERASE 25 U/L (5-40); CALCIUM 8.9 mg/dL (8.6-10.2); CARBON DIOXIDE 26 mEQ/L (20-30); CHLORIDE 99 mEQ/L (98-107); CREATININE 0.8 mg/dL (0.7-1.2); GLOMERULAR FILTRATION RATE > 60 mL/min (>60); HEMOLYSIS 6; MAGNESIUM 1.6 mg/dL (1.7-2.5); PHOSPHORUS 3.3 mg/dL (2.5-4.8); POTASSIUM 3.4 mEQ/L (3.4-4.9); SODIUM 136 mEQ/L (135-145); TOTAL PROTEIN 6.1 g/dL (6.6-8.7)
[2017-01-27 08:00] VITALS: BP 146/86
[2017-01-27] MEDS: Irbesartan 150mg tablet ORAL SCH (08:50)
[2017-01-27] MEDS: Docusate 100mg cap ORAL SCH (08:51)
[2017-01-27] MEDS: Fluconazole 100mg tab ORAL SCH (08:52)
[2017-01-27] MEDS: Carvedilol 25mg Tab ORAL SCH (08:52)
[2017-01-27] MEDS: clonazePAM 0.5mg tab ORAL PRN (08:52)
[2017-01-27] MEDS: NS w/KCl 20mEq 1,000 ML IV SCH (10:40)
[2017-01-27 12:00] VITALS: BP 136/84
--- NOTE | 2017-01-27 12:55 | Infectious Diseases Prog Note ---
Assessment/Plan Assessment/Plan A: The patient is a 66-year-old male with: Infected penile prosthesis, ( infected ) status post removal ( no Cx was sent ) Leucocytosis improving on day 9 of IV zosyn and vancomycin. Weakness improving HTN. CVA Erectile dysfunction History of GERD PLAN: d/c vancomycin and zosyn. okay for discharge home from ID standpoint on clindamycin 300mg po TID and ciprofloxacin 500mg BID for another 6 days to complete the course. I've ordered in inpatient meds to be reconciled for discharge. Subjective Allergies: Coded Allergies: No Known Allergies (Unverified , 01/18/17) Objective Vital Signs Last 24 Hour Vital Signs Date Time Temp Pulse Resp B/P Pulse Ox O2 Delivery O2 Flow Rate FiO2 01/27/17 08:52 109 146/86 01/27/17 08:51 109 146/86 01/27/17 08:50 146/86 01/27/17 08:00 97.7 109 20 146/86 100 Room Air 01/27/17 06:35 Room Air 01/27/17 06:35 98 Room Air 01/27/17 04:25 98.1 75 18 122/65 97 Room Air 01/27/17 00:18 97.7 71 19 120/62 95 Room Air 01/26/17 21:37 73 145/72 01/26/17 20:31 97.7 73 18 145/72 97 Room Air 01/26/17 20:09 Room Air 01/26/17 20:08 97 Room Air 01/26/17 16:00 97.2 80 18 129/59 96 Room Air Height (Feet): 5 Height (Inches): 6.00 Weight (Pounds): 138 General Appearance: no acute distress HEENT: anicteric Respiratory/Chest: lungs clear Abdomen: soft, non tender Laboratory Tests Test 01/27/17 05:15 White Blood Count 14.8 K/UL (4.8-10.8) H Red Blood Count 4.66 M/UL (4.70-6.10) L Hemoglobin 14.6 G/DL (14.2-18.0) Hematocrit 43.3 % (42.0-52.0) Mean Corpuscular Volume 93 FL (80-99) Mean Corpuscular Hemoglobin 31.3 PG (27.0-31.0) H Mean Corpuscular Hemoglobin Concent 33.6 G/DL (32.0-36.0) Red Cell Distribution Width 12.0 % (11.6-14.8) Platelet Count 270 K/UL (150-450) Mean Platelet Volume 7.2 FL (6.5-10.1) Neutrophils (%) (Auto) 79.9 % (45.0-75.0) H Lymphocytes (%) (Auto) 9.8 % (20.0-45.0) L Monocytes (%) (Auto) 7.1 % (1.0-10.0) Eosinophils (%) (Auto) 2.8 % (0.0-3.0) Basophils (%) (Auto) 0.4 % (0.0-2.0) Sodium Level 136 mEQ/L (135-145) Potassium Level 3.4 mEQ/L (3.4-4.9) Chloride Level 99 mEQ/L (98-107) Carbon Dioxide Level 26 mEQ/L (20-30) Anion Gap 11 (5-15) Blood Urea Nitrogen 17 mg/dL (7-23) Creatinine 0.8 mg/dL (0.7-1.2) Estimat Glomerular Filtration Rate > 60 mL/min (>60) Glucose Level 106 mg/dL (74-106) Calcium Level 8.9 mg/dL (8.6-10.2) Phosphorus Level 3.3 mg/dL (2.5-4.8) Magnesium Level 1.6 mg/dL (1.7-2.5) L Total Bilirubin 0.3 mg/dL (0.0-1.2) Aspartate Amino Transf (AST/SGOT) 25 U/L (5-40) Alanine Aminotransferase (ALT/SGPT) 32 U/L (3-41) Alkaline Phosphatase 96 U/L (40-129) Total Protein 6.1 g/dL (6.6-8.7) L Albumin 3.2 g/dL (3.5-5.2) L Globulin 2.9 g/dL Albumin/Globulin Ratio 1.1 (1.0-2.7) Current Medications Medications (Trade) Dose Ordered Sig/Twin Route PRN Reason Start Time Stop Time Status Last Admin Dose Admin Acetaminophen (Tylenol) 650 mg Q4H PRN ORAL FEVER>100.6 01/23/17 07:00 02/22/17 06:59 Acetaminophen (Tylenol) 650 mg Q6H PRN ORAL Mild Pain (Pain Scale 1-3) 01/23/17 11:00 02/22/17 10:59 Amlodipine Besylate (Norvasc) 10 mg DAILY ORAL 01/23/17 09:00 02/22/17 08:59 01/27/17 08:51 Atorvastatin Calcium (Lipitor) 80 mg BEDTIME ORAL 01/23/17 21:00 02/22/17 20:59 01/26/17 21:37 Carvedilol (Coreg) 25 mg EVERY 12 HOURS ORAL 01/23/17 09:00 02/22/17 08:59 01/27/17 08:52 Clonazepam 0.5 mg 0.5 mg EVERY 4 HOURS PRN ORAL For Anxiety 01/24/17 13:15 01/31/17 13:14 01/27/17 08:52 Clonidine HCl (Catapres) 0.1 mg Q4H PRN ORAL SBP >160 mm Hg 01/23/17 08:30 02/22/17 08:29 Docusate Sodium (Colace) 100 mg TWICE A DAY ORAL 01/23/17 09:00 02/22/17 08:59 01/27/17 08:51 Fluconazole (Diflucan) 200 mg DAILY ORAL 01/23/17 09:00 01/30/17 08:59 01/27/17 08:52 Hydralazine HCl (Apresoline) 25 mg EVERY 4 HOURS PRN ORAL SBP above 150 01/23/17 11:45 02/22/17 11:44 Hydromorphone HCl (Dilaudid) 3 mg Q3H PRN IVP Breakthrough Pain 01/23/17 14:30 01/30/17 14:29 01/27/17 12:06 Irbesartan (Avapro) 150 mg DAILY ORAL 01/23/17 11:00 02/22/17 10:59 01/27/17 08:50 Magnesium Sulfate (Magnesium Sulfate 1gm/100ml) 100 ml @ 100 mls/hr Q1H IVPB 01/27/17 12:30 01/27/17 14:29 Ondansetron HCl (Zofran) 4 mg Q6H PRN IVP Nausea & Vomiting 01/23/17 11:30 02/22/17 11:29 01/27/17 05:17 Piperacillin Sod/ Tazobactam Sod 3.375 gm/Sodium Chloride 110 ml @ 27.5 mls/hr Q8H IVPB 01/23/17 08:00 01/30/17 07:59 01/27/17 08:50 Temazepam (Restoril) 7.5 mg QHS PRN ORAL Insomnia 01/23/17 21:00 01/30/17 20:59 01/25/17 23:09 Vancomycin HCl (Vanco rx to dose) 1 ea DAILY PRN MISC Per rx protocol 01/23/17 09:00 02/22/17 08:59 Vancomycin HCl/ Dextrose (Vancomycin/D5W) 275 ml @ 183.708 mls/hr Q12HR@0230,1430 IVPB 01/23/17 14:30 01/28/17 14:29 01/27/17 03:48 Juan C Avitia M.D. Jan 27, 2017 12:55
[2017-01-27] MEDS ORDERED: Clindamycin 150mg cap ORAL SCH (14:00)
--- NOTE | 2017-01-27 15:00 | Pulmonology Progress Note ---
Assessment/Plan Problems: (1) Infected penile implant (2) HTN (hypertension) (3) Erectile dysfunction (4) CVA (cerebral vascular accident) Assessment/Plan bp control IV antibiotics can be switched to oral abx check wbc wbc decreasing, still high dc home today with oral abx prescription given Subjective ROS Limited/Unobtainable: No Allergies: Coded Allergies: No Known Allergies (Unverified , 01/18/17) Objective Last 24 Hour Vital Signs Date Time Temp Pulse Resp B/P Pulse Ox O2 Delivery O2 Flow Rate FiO2 01/27/17 12:00 98.0 83 20 136/84 99 Room Air 01/27/17 08:52 109 146/86 01/27/17 08:51 109 146/86 01/27/17 08:50 146/86 01/27/17 08:00 97.7 109 20 146/86 100 Room Air 01/27/17 06:35 Room Air 01/27/17 06:35 98 Room Air 01/27/17 04:25 98.1 75 18 122/65 97 Room Air 01/27/17 00:18 97.7 71 19 120/62 95 Room Air 01/26/17 21:37 73 145/72 01/26/17 20:31 97.7 73 18 145/72 97 Room Air 01/26/17 20:09 Room Air 01/26/17 20:08 97 Room Air 01/26/17 16:00 97.2 80 18 129/59 96 Room Air Intake and Output 01/26/17 01/27/17 19:00 07:00 Intake Total 1032.4 ml 1145.000 ml Output Total 400 ml 2650 ml Balance 632.4 ml -1505.000 ml Intake Oral 350 ml 480 ml IV Total 682.4 ml 665.000 ml Output Urine Total 400 ml 2650 ml # Bowel Movements 2 General Appearance: WD/WN HEENT: normocephalic, atraumatic Respiratory/Chest: chest wall non-tender, lungs clear Abdomen: normal bowel sounds, soft, non tender Genitourinary: normal external genitalia Extremities: no clubbing Skin: no lesions Neurologic/Psychiatric: family life educator II-XII grossly normal, no motor/sensory deficits Lymphatic: no neck adenopathy Laboratory Tests 01/27/17 05:15: White Blood Count 14.8H, Red Blood Count 4.66L, Hemoglobin 14.6, Hematocrit 43.3 , Mean Corpuscular Volume 93, Mean Corpuscular Hemoglobin 31.3H, Mean Corpuscular Hemoglobin Concent 33.6, Red Cell Distribution Width 12.0, Platelet Count 270, Mean Platelet Volume 7.2, Neutrophils (%) (Auto) 79.9H, Lymphocytes ( %) (Auto) 9.8L, Monocytes (%) (Auto) 7.1, Eosinophils (%) (Auto) 2.8, Basophils (%) (Auto) 0.4, Sodium Level 136, Potassium Level 3.4, Chloride Level 99, Carbon Dioxide Level 26, Anion Gap 11, Blood Urea Nitrogen 17, Creatinine 0.8, Estimat Glomerular Filtration Rate > 60, Glucose Level 106, Calcium Level 8.9, Phosphorus Level 3.3, Magnesium Level 1.6L, Total Bilirubin 0.3, Aspartate Amino Transf (AST/SGOT) 25, Alanine Aminotransferase (ALT/SGPT) 32, Alkaline Phosphatase 96, Total Protein 6.1L, Albumin 3.2L, Globulin 2.9, Albumin/ Globulin Ratio 1.1 Current Medications Medications (Trade) Dose Ordered Sig/Twin Route PRN Reason Start Time Stop Time Status Last Admin Dose Admin Acetaminophen (Tylenol) 650 mg Q4H PRN ORAL FEVER>100.6 01/23/17 07:00 02/22/17 06:59 Acetaminophen (Tylenol) 650 mg Q6H PRN ORAL Mild Pain (Pain Scale 1-3) 01/23/17 11:00 02/22/17 10:59 Amlodipine Besylate (Norvasc) 10 mg DAILY ORAL 01/23/17 09:00 02/22/17 08:59 01/27/17 08:51 Atorvastatin Calcium (Lipitor) 80 mg BEDTIME ORAL 01/23/17 21:00 02/22/17 20:59 01/26/17 21:37 Carvedilol (Coreg) 25 mg EVERY 12 HOURS ORAL 01/23/17 09:00 02/22/17 08:59 01/27/17 08:52 Ciprofloxacin (Cipro 500mg tab) 500 mg EVERY 12 HOURS ORAL 01/27/17 21:00 02/03/17 20:59 Clindamycin HCl (Cleocin) 300 mg Q8HR ORAL 01/27/17 14:00 02/03/17 13:59 Clonazepam (KlonoPIN) 0.5 mg EVERY 4 HOURS PRN ORAL For Anxiety 01/24/17 13:15 01/31/17 13:14 01/27/17 08:52 Clonidine HCl (Catapres) 0.1 mg Q4H PRN ORAL SBP >160 mm Hg 01/23/17 08:30 02/22/17 08:29 Docusate Sodium (Colace) 100 mg TWICE A DAY ORAL 01/23/17 09:00 02/22/17 08:59 01/27/17 08:51 Hydralazine HCl (Apresoline) 25 mg EVERY 4 HOURS PRN ORAL SBP above 150 01/23/17 11:45 02/22/17 11:44 Hydromorphone HCl (Dilaudid) 3 mg Q3H PRN IVP Breakthrough Pain 01/23/17 14:30 01/30/17 14:29 01/27/17 12:06 Irbesartan (Avapro) 150 mg DAILY ORAL 01/23/17 11:00 02/22/17 10:59 01/27/17 08:50 Ondansetron HCl (Zofran) 4 mg Q6H PRN IVP Nausea & Vomiting 01/23/17 11:30 02/22/17 11:29 01/27/17 05:17 Temazepam (Restoril) 7.5 mg QHS PRN ORAL Insomnia 01/23/17 21:00 01/30/17 20:59 01/25/17 23:09 JASPREET LEPE Jan 27, 2017 15:00
--- NOTE | 2017-01-27 16:15 | Progress Note ---
DATE: 01/27/2017 CARDIOLOGY PROGRESS NOTE SUBJECTIVE: The patient remains on antibiotics. Blood pressure parameters are labile, but overall stabilizing. He continues to have pain requiring relief. OBJECTIVE: VITAL SIGNS: Blood pressure 122/65 to 146/86, heart rate 75 to 109, respiratory 20 and afebrile. HEENT: Conjunctivae are pink. Oropharynx clear. NECK: Supple. LUNGS: Clear. CARDIAC: Regular. Normal S1 and S2. ABDOMEN: Soft. EXTREMITIES: No edema. UROLOGIC: Site with dressing in place. LABORATORY AND DIAGNOSTIC DATA: White count 14.8 and hemoglobin 14.6 yesterday. IMPRESSION: 1. Status post removal of infected penile prosthesis. Postoperative pain. 2. Secondary sinus tachycardia. No signs of acute congestive heart failure. 3. Hypomagnesemia, status post replacement therapy. 4. Recovered shock due to sepsis, resolved. 5. Hypovolemia with intravenous fluid hydration. PLAN: 1. Intravenous magnesium replacement. 2. Maintain current antihypertensive regimen. 3. Stable for discharge from a cardiovascular standpoint. Roni Jose M.D. DR: ISABEL JOB#: [id number] CC:
[2017-01-27] MEDS ORDERED: Ciprofloxacin 500mg tab ORAL SCH (21:00)
--- NOTE | 2017-01-28 22:34 | Discharge Summary ---
Discharge Summary Hospital Course Date of Admission Jan 19, 2017 at 19:33 Date of Discharge Jan 27, 2017 at 17:23 Admitting Diagnosis RICHELLE Lorenzo is a 66 year old male who was admitted on Jan 19, 2017 at 19:33 for Infected Abscess Hospital Course [id number] Discharge Discharge Disposition Patient was discharged to Home with Home Health(06) Discharge Diagnoses: Sparkle Blount NP Jan 28, 2017 22:34
--- NOTE | 2017-01-29 07:30 | Discharge Summary 2 SIG ---
DATE OF ADMISSION: 01/19/2017 DATE OF DISCHARGE: 01/27/2017 SURGEON: Hugo Cisneros M.D. CONSULTANTS: 1. Sascha Tabor M.D 2. Danie Adorno M.D. BRIEF HOSPITAL COURSE: The patient is a 66-year-old male, who had erectile dysfunction and had infected and malfunctioning penile prosthesis, underwent removal of penile prosthesis with urethral reconstruction, closure of urethral perforation, and erosion on 01/19/[address] Cisneros. Postoperatively, the patient was with leukocytosis and had sinus tachycardia. Blood pressure was elevated and was given multiple regimen of antihypertensives including hydralazine, Avapro, Coreg, and Norvasc. He was given vancomycin and Zosyn intravenously, however, continued to have leukocytosis. Electrolytes were replenished. WBC trended down. The patient was eventually switched to oral antibiotics. The patient was discharged home with home health. Prescriptions were given. FINAL DIAGNOSES: 1. Sepsis. 2. Status post removal of infected penile prosthesis. 3. Secondary sinus tachycardia with no signs of acute congestive heart failure. 4. Hypomagnesemia. 5. Recovered shock due to sepsis. 6. Hypovolemia with IV fluid hydration. 7. Erectile dysfunction. 8. Old cerebrovascular accident. 9. Hypertensive urgency. 10. Hypokalemia. Sania Valles M.D. I have been assigned to dictate discharge summary on this account and I was not involved in the patient's management. Sparkle Bluont N.P. DR: Larry JOB#: [id number] CC:
== END 2017-01-27 17:23 | disposition home health service (06) | DRG 662 ==
LOC: SUR 09:16 → 3E 19:33 → 2E 01-20 09:40 → 3E 01-23 06:26
PROC: 0VPS0JZ Removal of Synthetic Substitute from Penis, Open Approach (ICD-10-PCS; principal; 2017-01-19 13:15)
PROC: 0TQD0ZZ Repair Urethra, Open Approach (ICD-10-PCS; principal; 2017-01-19 13:15)
DX: T83.61XA Infection and inflammatory reaction due to implanted penile prosthesis, initial encounter (principal); A41.9 Sepsis, unspecified organism; R65.21 Severe sepsis with septic shock; I50.33 Acute on chronic diastolic (congestive) heart failure; E44.0 Moderate protein-calorie malnutrition; S37.39XA Other injury of urethra, initial encounter; I11.0 Hypertensive heart disease with heart failure; E87.1 Hypo-osmolality and hyponatremia; T83.420A Displacement of implanted penile prosthesis, initial encounter; I69.320 Aphasia following cerebral infarction; Y83.8 Other surgical procedures as the cause of abnormal reaction of the patient, or of later complication, without mention of misadventure at the time of the procedure; I10 Essential (primary) hypertension; N52.8 Other male erectile dysfunction; R00.0 Tachycardia, unspecified; Z68.22 Body mass index [BMI] 22.0-22.9, adult; E86.1 Hypovolemia; E87.6 Hypokalemia; E83.42 Hypomagnesemia; K21.9 Gastro-esophageal reflux disease without esophagitis; I16.0 Hypertensive urgency; D64.9 Anemia, unspecified
CPT/HCPCS: 36415; 80048; 80053; 80202; 83735; 83880; 84100; 85007; 85025; 85610; 85730; 93005; 94003; 94150; 94760; A4246; J1580; J2405; J8499